=== PATIENT | female | born 1930 | race Caucasian/White ===

== ENCOUNTER 2016-10-07 15:06 | Inpatient (IN) | payer MEDICARE, OTHER ==
[2016-10-07] MEDS ORDERED: 0.9 % SODIUM CHLORIDE 0 ML IV ONE (15:56)
[2016-10-07] MEDS ORDERED: PROMETHAZINE HCL 25 MG/ML VIAL ONE (15:56)
--- NOTE | 2016-10-07 15:57 | ED Physician Documentation ---
General Adult - HISTORIAN Historian: patient, other (family) - HPI Stated Complaint: N/V and Dizziness Chief Complaint: General Adult Onset: hours Timing: still present Severity: moderate Further Comments: yes (Pt is an 86 yo female with nausea, vomiting, weakness and dizziness that began this am. No fever. Pt denies chest pain and cough. "I just don't feel well.") - ROS CONST: weakness EYES/ENT: none CVS/RESP: none GI/: vomiting, nausea. denies: diarrhea MS/SKIN/LYMPH: none NEURO/PSYCH: dizziness - PAST HX Past History: other Surgeries/Procedures: other (cardiac pacemaker) Allergies/Adverse Reactions: Allergies Allergy/AdvReac Type Severity Reaction Status Date / Time warfarin [Warfarin] Allergy Severe Rash Verified 10/07/16 15:26 atenolol Allergy Intermediate Throat Verified 10/07/16 15:26 Swelling Penicillins Allergy Intermediate Rash Verified 10/07/16 15:26 pravastatin Allergy Intermediate Itchy Skin Verified 10/07/16 15:26 levofloxacin Allergy Mild Verified 10/07/16 15:26 fluticasone furoate Allergy Verified 10/07/16 15:26 [From Breo Ellipta] vilanterol trifenatate Allergy Verified 10/07/16 15:26 [From Breo Ellipta] iodine AdvReac Tongue Verified 10/07/16 15:26 Swelling Home Medications: Ambulatory Orders Medication Instructions Recorded Timolol [Betimol] 5 ml OP DAILY 10/16/12 Dorzolamide HCl/Timolol Maleat 1 drop EACHEYE D 04/06/14 [Cosopt Eye Drops] Levocetirizine Dihydrochloride 5 mg PO D 04/06/14 [Levocetirizine Dihydrochloride] Lovastatin [Lovastatin] 40 mg PO D 04/06/14 - SOCIAL HX Smoking History: quit greater than 1 year - FAMILY HX Family History: No - VITAL SIGNS Vital Signs: Vital Signs Temp Pulse Resp BP Pulse Ox 98.1 F 118 H 20 169/84 93 10/07/16 15:10 10/07/16 15:38 10/07/16 15:10 10/07/16 15:10 10/07/16 15:38 - REVIEWED ASSESSMENTS Nursing Assessment Reviewed: Yes Vitals Reviewed: Yes Progress - Progress Progress: CXR: Cardiomegaly with mild vascular congestion bilateral infiltrates most prominent in a right upper lobe and left lower lobe. 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 B/l pneumonia, Strep pharyngitis. - EKG/XRAY/CT EKG: NSR (HR=98; LVH by voltage.) ED Results Lab/Radiology - Orders Orders: ED Orders Category Date Time Status Continuous EKG monitoring Q30M Care 10/07/16 15:38 Active Continuous Pulse Oximetry Q30M Care 10/07/16 15:[address] Saline Lock/IV NOW Care 10/07/16 15:38 Completed CHEST 1 VIEW [RAD] Stat Exams 10/07/16 15:38 Ordered CBC/PLATELET/DIFF Routine Lab 10/07/16 15:20 Ordered CMP Routine Lab 10/07/16 15:20 Ordered CREATINE KINASE Routine Lab 10/07/16 15:20 Ordered TROPONIN I (cTnI) Stat Lab 10/07/16 15:38 Ordered Oxygen Daily Oxygen 10/07/16 15:45 Ordered EKG WITH COMPARISON Stat Ther 10/07/16 15:20 Ordered EKG WITH COMPARISON Stat Ther 10/07/16 15:38 Ordered General Adult Physical Exam - PHYSICAL EXAM GENERAL APPEARANCE: moderate distress EENT: eye inspection normal, ENT inspection normal, pharynx normal NECK: normal inspection, supple RESPIRATORY: no resp distress, chest non-tender, rales (b/l) CVS: reg rate & rhythm, heart sounds normal ABDOMEN: soft, no organomegaly, normal bowel sounds BACK: normal inspection, no CVA tenderness SKIN: warm/dry, normal color EXTREMITIES: non-tender, normal range of motion NEURO: oriented X3, motor nml, sensation nml Discharge Clincal Impression: Strep pharyngitis Pneumonia Qualifiers: Pneumonia type: due to unspecified organism Laterality: bilateral Lung location : unspecified part of lung Qualified Code(s): J18.9 - Pneumonia, unspecified organism CHF (congestive heart failure) Qualifiers: Congestive heart failure type: unspecified congestive heart failure type Congestive heart failure chronicity: unspecified congestive heart failure chronicity Qualified Code(s): I50.9 - Heart failure, unspecified Home Medications: Ambulatory Orders Timolol [Betimol] 5 ml OP DAILY 10/16/12 Dorzolamide HCl/Timolol Maleat [Cosopt Eye Drops] 1 drop EACHEYE D 04/06/14 Levocetirizine Dihydrochloride [Levocetirizine Dihydrochloride] 5 mg PO D Lovastatin [Lovastatin] 40 mg PO D 04/06/14 Condition: Stable Disposition: 09 ADMITTED INPATIENT Decision to Admit: [id number] Decision Time: 17:22
[2016-10-07] MEDS ORDERED: PROMETHAZINE HCL 25 MG in 0.9 % SODIUM CHLORIDE 50 ML IV ONE (16:01)
--- NOTE | 2016-10-07 16:24 | Diagnostic Imaging Report ---
[facility] [id number] [facility].[address] [address] Report Submission Date: Oct 07, 2016 4:03:03 PM GEOTHERMAL OPERATIONS ENGINEER Patient Study Name: LUZ MARIA BAELS Date: Oct 07, 2016 3:56:19 PM GEOTHERMAL OPERATIONS ENGINEER Modality Type: CR Gender: F Description: CHEST : 28 Institution: [facility] Physician: BHAVANI JACOBS EXAMINATION: Chest, one-view. HISTORY: Shortness of breath FINDINGS: The heart is mildly enlarged. Wire sternal sutures are in place. There is atherosclerosis of the aorta. There is mild vascular congestion. Bilateral pulmonary infiltrates are present most prominent in the right upper lobe and left lower lobe. There is no pleural effusion or pneumothorax identified. Cardiac device present in the left chest wall with leads extending to the heart. IMPRESSION: Cardiomegaly with mild vascular congestion bilateral infiltrates most prominent in a right upper lobe and left lower lobe. Electronically signed on Oct 07, 2016 4:03:03 PM GEOTHERMAL OPERATIONS ENGINEER by: Ivan JOSEPH
[2016-10-07 16:37] LABS: BASOPHILS % 0.4 (0.0-1.5); EOSINOPHILS % 1.7 % (0.0-6.8); LYMPHOCYTES # 1.3 # k/uL (0.6-4.0); MEAN CORPUSCULAR HEMOGLOBIN 29.7 pg (28.0-34.0); MONOCYTES # 0.4 # k/uL (0.0-0.9); MONOCYTES % 5.5 % (0.0-11.0); NEUTROPHILS # 6.2 # k/uL (1.4-7.7)
[2016-10-07 16:49] LABS: eGFR (African) > 60; eGFR (Non-African) > 60
[2016-10-07] MEDS ORDERED: IPRATROPIUM/ALBUTEROL SULFATE 3 ML AMPUL.NEB NEB ONE ×2 (16:49)
[2016-10-07] MEDS: cefTRIAXone SODIUM 1 GM in 0.9 % SODIUM CHLORIDE 50 ML IV SCH (17:35)
[2016-10-07] MEDS ORDERED: cefTRIAXone SODIUM ADVANTAGE 1 GM VIAL.PORT IV ONE (17:35)
[2016-10-07] MEDS ORDERED: 0.9 % SODIUM CHLORIDE 100 ML IV ONE (17:35)
[2016-10-07] MEDS ORDERED: PANTOPRAZOLE SODIUM 40 MG TABLET PO ONE (17:58)
[2016-10-07] MEDS ORDERED: AZITHROMYCIN 500 MG VIAL IV ONE (18:36)
[2016-10-07] MEDS ORDERED: ACETAMINOPHEN 325 MG SUPP.RECT RC ONE (18:37)
[2016-10-07] MEDS ORDERED: 0.9 % SODIUM CHLORIDE 250 ML IV ONE (18:39)
[2016-10-07] MEDS ORDERED: ACETAMINOPHEN 325 MG TABLET ONE (18:40)
[2016-10-07] MEDS ORDERED: ASPIRIN EC 81 MG TABLET.DR ONE (18:57)
[2016-10-07] MEDS ORDERED: FUROSEMIDE 20 MG/2 ML VIAL IVP ONE (19:09)
[2016-10-07] MEDS ORDERED: SALINE FLUSH 10 ML DISP.SYRIN IVF ONE (19:13)
[2016-10-07] MEDS ORDERED: ACETAMINOPHEN 325 MG TABLET PO PRN (19:13)
--- NOTE | 2016-10-07 19:26 | History and Physical Report ---
History of Present Illnes - History of Present Illness Reason for Visit: Pneumonia, vomiting, generalized weakness, congestive heart failure History of Present Illness: This is an 86 year old female admitted through the ER for bilateral pneumonia, congestive heart failure, and generalized weakness. She notes she had 3 episodes of vomiting earlier today and was feeling dehydrated and weak. She notes she has had several upper respiratory illnesses over the last few months but denies feeling short of breath. She notes a mild cough but states that it is usually nonproductive. She notes a significant cardiac history including CABG, and ICD placement. She denies any orthopnea, dyspnea on exertion, or peripheral edema. She notes she is nervous to eat anything since vomiting earlier but states her stomach feels better after getting the anti-nausea medications. - Past Medical History Cardiac: CAD, CHF, HTN, [place], Hyperlipidemia Pulmonary: denies: Asthma, COPD - Past Surgical History Past Surgical History: CABG, Hysterectomy, Other (Aortic Valve replacement with bovine valve. right carotid enartectomy, reconstructive bladder, ) - Past Social History Smoke: Quit (many years ago) Alcohol: None Drugs: None Lives: Alone - Health Maintenance Health Maintenance: Influenza Vaccine, Pneumococcal Vaccine Influenza Vaccine: Current for this Influenza Season Pneumonia Vaccine: Yes (Pneumovax: 07/04/2016, Prevnar: 07/27/2015) Resuscitation Status: Full Code Review of Systems - Review of Systems Constitutional: Weakness, Malaise. negative: Fever, Chills Eyes: negative: vision change, conjunctivae inflammation, eyelid inflammation, redness ENT: negative: Ear Pain, Ear Discharge, Nose Pain, Nose Discharge, Mouth Pain, Mouth Swelling, Throat Pain Respiratory: Cough (mild). negative: Shortness of Breath, Hemoptysis ( ), SOB with Excertion, Wheezing Cardiovascular: negative: Chest Pain, Palpitations, Edema, Light Headedness Gastrointestinal: Nausea, Vomiting. negative: Abdominal Pain, Diarrhea, Constipation, Hematochezia Genitourinary: negative: Dysuria, Frequency, Hematuria Musculoskeletal: Leg Pain (Complaining of leg cramps). negative: Neck Pain Skin: negative: Rash, Lesions, Jaundice, Bruising Neurological: Weakness (generalized weakness). negative: Numbness, Incoordination, Change in Speech, Confusion, Seizures - Medications/Allergies Allergies/Adverse Reactions: Allergies Allergy/AdvReac Type Severity Reaction Status Date / Time warfarin [Warfarin] Allergy Severe Rash Verified 10/07/16 15:26 atenolol Allergy Intermediate Throat Verified 10/07/16 15:26 Swelling Penicillins Allergy Intermediate Rash Verified 10/07/16 15:26 pravastatin Allergy Intermediate Itchy Skin Verified 10/07/16 15:26 levofloxacin Allergy Mild Verified 10/07/16 15:26 fluticasone furoate Allergy Verified 10/07/16 15:26 [From Breo Ellipta] vilanterol trifenatate Allergy Verified 10/07/16 15:26 [From Breo Ellipta] iodine AdvReac Tongue Verified 10/07/16 15:26 Swelling Current Inpatient Medications: Current Inpatient Medications Acetaminophen (Tylenol) 650 mg PO Q6H PRN PRN Reason: Fever >101 Last Admin: 10/07/16 18:45 Dose: 650 mg Albuterol Sulfate (Ventolin) 2.5 mg NEB Q4 SERGIO Stop: 10/12/16 23:59 Amlodipine Besylate (Norvasc) 5 mg PO DAILY [facility] Aspirin (Aspirin) 81 mg PO DAILY [facility] Stop: 10/12/16 23:59 Dorzolamide/Timolol (Cosopt Eye Drops) 1 drop OP BID [facility] Fluticasone Propionate (Flonase Nasal [place]) spray NS BID [facility] Furosemide (Lasix) 20 mg IVP NOW ONE Stop: 10/07/16 19:10 Last Admin: 10/07/16 19:25 Dose: 20 mg Ceftriaxone Sodium 1 gm/ (Sodium Chloride) 50 mls @ 100 mls/hr IV QD [facility] Last Admin: 10/07/16 17:35 Dose: 100 mls/hr Azithromycin 500 mg/ Sodium (Chloride) 250 mls @ 125 mls/hr IV Q24H [facility] Stop: 10/17/16 17:59 Lisinopril (Prinivil) 40 mg PO DAILY [facility] Stop: 10/12/16 23:59 Loratadine (Claritin) 10 mg PO DAILY [facility] Stop: 10/12/16 23:59 Pantoprazole Sodium (Protonix) 40 mg PO NOW ONE Stop: 10/07/16 17:59 Last Admin: 10/07/16 18:44 Dose: 40 mg Simvastatin (Zocor) 20 mg PEG HS [facility] Exam - Exam Vital Signs: Vital Signs (72 hours) 10/07/16 10/07/16 10/07/16 17:40 18:00 18:05 Temperature 98.1 F Pulse Rate 90 Pulse Rate [ 98 H 98 H Pulse ox] Respiratory 18 20 Rate Blood Pressure 128/87 118/64 [Right Arm] O2 Sat by Pulse 99 99 99 Oximetry General: Alert, Oriented to Person, Oriented to Place, Oriented to Time, Cooperative, No acute distress, Thin HEENT: Atraumatic, PERRLA, EOMI, Mouth Mucous membr. moist/[place], Nose Mucous membr. moist/[place] ( ), Decreased Hearing Acuity. No: Photophobia Neck: Normal Range of Motion Lungs: Speaks full Sentences, Wheezes (mild scattered wheezing at lung bases). No: Respiratory Distress, Accessory Muscle Use, Retractions/Splinting, Decreased Air Movement, Chest Wall Tenderness Cardiovascular: Regular rate, Normal S1, Normal S2, No murmurs. No: Gallops, Rubs Abdomen: Normal bowel sounds, Soft, No tenderness, No masses. No: Distended, Rigid Integumentary: Normal, [place], Warm, Dry Extremities: Normal pulses. No: No clubbing, No cyanosis, No edema, No tenderness/swelling Neurological: Normal gait, Normal speech, Strength Equal Bilat, Sensation intact Psych/Mental Status: Mood NL, Appropriate Affect - Laboratory Results Laboratory Results: Laboratory Results - last 24 hr 10/07/16 10/07/16 10/07/16 16:30 16:30 16:30 WBC 8.20 RBC 4.40 Hgb 13.1 Hct 40.2 MCV 91.4 MCH 29.7 MCHC 32.5 RDW 13.2 Plt Count 223 Neut % (Auto) 75.6 Lymph % (Auto) 15.8 L [place] % (Auto) 5.5 Eos % (Auto) 1.7 Baso % (Auto) 0.4 Neut # 6.2 Lymph # 1.3 [place] # 0.4 Eos # 0.1 Baso # 0.0 Reactive Lymphs % 0.9 Reactive Lymphs # 0.1 Sodium 137 Potassium 3.9 Chloride 99 Carbon Dioxide 27 BUN 18 Creatinine 1.1 Estimated Creat Clear 39 Est GFR ( Amer) > 60 Est GFR (Non-Af Amer) > 60 Glucose 128 H Calcium 10.3 Total Bilirubin 0.5 AST 21 ALT 9 Alkaline Phosphatase 109 Creatine Kinase 25 Troponin I < 0.03 L NT-Pro-B Natriuret Pep Total Protein 8.4 Albumin 4.5 01/22/17 16:30 WBC RBC Hgb Hct MCV MCH MCHC RDW Plt Count Neut % (Auto) Lymph % (Auto) [place] % (Auto) Eos % (Auto) Baso % (Auto) Neut # Lymph # [place] # Eos # Baso # Reactive Lymphs % Reactive Lymphs # Sodium Potassium Chloride Carbon Dioxide BUN Creatinine Estimated Creat Clear Est GFR ( Amer) Est GFR (Non-Af Amer) Glucose Calcium Total Bilirubin AST ALT Alkaline Phosphatase Creatine Kinase Troponin I NT-Pro-B Natriuret Pep 1025.0 H Total Protein Albumin Assessment/Plan - Assessment/Plan (1) Pneumonia Status: Acute Current Visit: Yes Qualifiers: Pneumonia type: due to unspecified organism Laterality: bilateral Lung location: lower lobe of lung Qualified Code(s): J18.9 - Pneumonia, unspecified organism Assessment: Chest x-ray shows bilateral infiltrates. Patient has mild scattered wheezing at bilateral lung bases. She is requiring O2 at 2L to keep O@ sat above 90. Patient has mild cough. Plan: Continue breathing treatments. Continue O2, titrating as needed. Rocephin and Azithromycin started. (2) Vomiting Status: Acute Current Visit: Yes Qualifiers: Vomiting type: unspecified Vomiting Intractability: non-intractable Nausea presence: with nausea Qualified Code(s): R11.2 - Nausea with vomiting, unspecified Assessment: Patient appears to be responding well after getting promethazine in the ED. She states she no longer feels nauseous. Plan: Continue IV fluids. Advance diet slowly beginning with breakfast on 10/08/2016. (3) CHF (congestive heart failure) Status: Acute Current Visit: Yes Qualifiers: Congestive heart failure type: unspecified congestive heart failure type Congestive heart failure chronicity: acute on chronic Qualified Code(s): I50.9 - Heart failure, unspecified Assessment: BNP is elevated at 1025.0 pg/ml. Patient is requiring O2 at 2L to keep O2 sat above 90%. She denies any shortness of breath. There is no evidence of peripheral edema on exam. Plan: Continue O2 titrating as needed. Start Lasix 20mg PO QD. (4) HTN (hypertension) Status: Chronic Current Visit: Yes Qualifiers: Hypertension type: essential hypertension Qualified Code(s): I10 - Essential (primary) hypertension Assessment: Blood pressure is well controlled with last BP reading of 118/64. Plan: Continue home medications. Continue to monitor BP. VTE Assessment - RISK FACTOR SCORE VTE RISK FACTOR SCORES: AGE OVER 60 YEARS, ACUTE INFECTION OTHER THEN SEPSIS, CONGESTIVE HEART FAILURE OR MYOCARDIAL INFARCTION - RISK VTE HIGH RISK: SCORE OF 3-4 (RISK PROXIMAL DVT 4-8%) PROPHYLAXIS NEEDED
[2016-10-07 19:37] VITALS: BMI 21.6
[2016-10-07] MEDS: AZITHROMYCIN 500 MG in 0.9 % SODIUM CHLORIDE 250 ML IV SCH (20:00)
[2016-10-07] MEDS ORDERED: IPRATROPIUM/ALBUTEROL SULFATE 3 ML AMPUL.NEB NEB SCH (21:00)
[2016-10-07] MEDS: SIMVASTATIN 20 MG TABLET PEG SCH (21:20)
[2016-10-07] MEDS: ASPIRIN 81 MG CHEW TAB PO SCH (21:22)
[2016-10-07] MEDS: DORZOLAMINE HCL/TIMOLOL MALEAT OPTH DROP OP SCH (21:24)
[2016-10-07] MEDS: ALBUTEROL SULFATE 2.5 MG/3 ML AMPUL.NEB NEB SCH (22:35)
[2016-10-08] MEDS ORDERED: SALINE FLUSH 10 ML DISP.SYRIN IVF ONE ×2 (02:24→17:46)
[2016-10-08] MEDS: ALBUTEROL SULFATE 2.5 MG/3 ML AMPUL.NEB NEB SCH ×5 (02:30→16:27)
[2016-10-08 07:34] LABS: BASOPHILS % 0.4 (0.0-1.5); EOSINOPHILS % 2.6 % (0.0-6.8); LYMPHOCYTES # 1.2 # k/uL (0.6-4.0); MEAN CORPUSCULAR HEMOGLOBIN 30.4 pg (28.0-34.0); MONOCYTES # 0.4 # k/uL (0.0-0.9); MONOCYTES % 6.2 % (0.0-11.0); NEUTROPHILS # 4.8 # k/uL (1.4-7.7)
[2016-10-08 07:55] LABS: eGFR (African) > 60; eGFR (Non-African) > 60
[2016-10-08] MEDS: FLUTICASONE PROPIONATE 120 SPRAY/16 GR BOTTLE NS SCH ×3 (09:32→20:28)
[2016-10-08] MEDS: ASPIRIN 81 MG CHEW TAB PO SCH (09:32)
[2016-10-08] MEDS: LORATADINE 10 MG TABLET PO SCH (09:33)
[2016-10-08] MEDS: LISINOPRIL 20 MG TABLET PO SCH (09:34)
[2016-10-08] MEDS: amLODIPine BESYLATE 5 MG TABLET PO SCH (09:34)
[2016-10-08] MEDS: DORZOLAMINE HCL/TIMOLOL MALEAT OPTH DROP OP SCH ×2 (09:34→20:29)
[2016-10-08] MEDS: AZITHROMYCIN 500 MG in 0.9 % SODIUM CHLORIDE 250 ML IV SCH (18:17)
[2016-10-08] MEDS: cefTRIAXone SODIUM 1 GM in 0.9 % SODIUM CHLORIDE 50 ML IV SCH (20:24)
[2016-10-08] MEDS: SIMVASTATIN 20 MG TABLET PEG SCH (20:29)
[2016-10-09] MEDS: ALBUTEROL SULFATE 2.5 MG/3 ML AMPUL.NEB NEB SCH ×7 (00:28→23:27)
--- NOTE | 2016-10-09 08:12 | Inpatient Progress Note ---
Subjective - Required Recertification Statement I anticipate X number of days because-include discharge plan: 2 - Review of Systems Subjective: patient continued to be weak with some respiratory distress. Patient states she does have a cough that is productive of green to yellow phlegm. Patient does have some mild expiratory wheezing noted. Patient denies any chest pain chest pressure TIA or CVA symptoms. General: Chills Pulmonary: Dyspnea, Cough Cardiovascular: Denies: Chest Pain, Palpitations Gastrointestinal: Nausea (mild). Denies: Vomiting, Diarrhea, Constipation, Melena, Hematochezia Objective - Exam Vitals and I&O: Vital Signs Temp 98.6 F 10/09/16 06:00 Pulse 74 10/09/16 06:00 Resp 18 10/09/16 06:00 BP 130/72 10/09/16 06:00 Pulse Ox 95 10/09/16 06:00 Intake & Output 10/08/16 10/08/16 10/09/16 11:59 23:59 11:59 Intake Total 240 360 Output Total 600 Balance -360 360 Weight 58.967 kg Intake: Oral 240 360 Output: Urine 600 Other: Voiding Method Toilet Toilet General: Alert, Oriented to Person, Oriented to Place, Cooperative. No: Oriented to Time Neck: Supple, No JVD, No thyromegaly Lungs: Normal air movement, Speaks full Sentences, Respiratory Distress (mild), Wheezes (mild), Rales (rales right base). No: Rhonchi Cardiovascular: Regular rate, Normal S1, Normal S2 Abdomen: Normal bowel sounds, Soft, No tenderness, No hepatospenomegaly Psych/Mental Status: Mental status NL, Mood NL, Appropriate Affect, Intact Judgment - Results Results: Laboratory Results WBC 6.70 K/ul (4.00-12.00) 10/08/16 06:55 RBC 4.28 M/ul (3.90-5.20) 10/08/16 06:55 Hgb 13.0 g/dL (12.0-16.0) 10/08/16 06:55 Hct 40.1 % (34.5-46.5) 10/08/16 06:55 MCV 93.9 fl (80.0-100.0) 10/08/16 06:55 MCH 30.4 pg (28.0-34.0) 10/08/16 06:55 MCHC 32.3 g/dL (30.0-36.0) 10/08/16 06:55 RDW 13.1 % (11.3-14.3) 10/08/16 06:55 Plt Count 186 K/mm3 (130-400) 10/08/16 06:55 Neut % (Auto) 71.5 % (39.0-79.0) 10/08/16 06:55 Lymph % (Auto) 18.0 % (16.0-50.0) 10/08/16 06:55 [place] % (Auto) 6.2 % (0.0-11.0) 10/08/16 06:55 Eos % (Auto) 2.6 % (0.0-6.8) 10/08/16 06:55 Baso % (Auto) 0.4 (0.0-1.5) 10/08/16 06:55 Neut # 4.8 # k/uL (1.4-7.7) 10/08/16 06:55 Lymph # 1.2 # k/uL (0.6-4.0) 10/08/16 06:55 Jay # 0.4 # k/uL (0.0-0.9) 10/08/16 06:55 Eos # 0.2 # k/uL (0.0-0.6) 10/08/16 06:55 Baso # 0.0 # k/uL (0.0-0.5) 10/08/16 06:55 Reactive Lymphs % 1.4 % (0.0-5.0) 10/08/16 06:55 Reactive Lymphs # 0.1 # k/uL (0.0-0.8) 10/08/16 06:55 Sodium 136 mmol/L (136-145) 10/08/16 06:55 Potassium 4.3 mmol/L (3.5-5.0) 10/08/16 06:55 Chloride 109 mmol/L (98-110) 10/08/16 06:55 Carbon Dioxide 30 mmol/L (20-32) 10/08/16 06:55 BUN 17 mg/dL (10-26) 10/08/16 06:55 Creatinine 1.2 mg/dL (0.4-1.5) 10/08/16 06:55 Estimated Creat Clear 36 10/08/16 06:55 Est GFR ( Amer) > 60 (60-) 10/08/16 06:55 Est GFR (Non-Af Amer) > 60 (60-) 10/08/16 06:55 Glucose 87 mg/dL (70-99) 10/08/16 06:55 Calcium 9.5 mg/dL (8.5-10.5) 10/08/16 06:55 Total Bilirubin 0.5 mg/dL (0.2-1.2) 10/08/16 06:55 AST 21 U/L (0-41) 10/08/16 06:55 ALT 10 U/L (0-45) 10/08/16 06:55 Alkaline Phosphatase 101 U/L (46-116) 10/08/16 06:55 Creatine Kinase 39 U/L (0-225) 10/08/16 06:55 CK-MB (CK-2) Cancelled 10/08/16 03:06 Troponin I < 0.03 ng/mL (0.03-0.06) L 10/08/16 03:06 NT-Pro-B Natriuret Pep 1296.3 pg/mL (15.0-450.0) H 10/07/16 21:55 Total Protein 7.8 g/dL (6.0-8.5) 10/08/16 06:55 Albumin 4.1 g/dL (3.0-5.5) 10/08/16 06:55 Influenza A (Rapid) Negative (NEGATIVE) 10/07/16 17:15 Influenza B (Rapid) Negative (NEGATIVE) 10/07/16 17:15 Group A Strep Screen Positive (NEGATIVE) H 10/07/16 17:15 Assessment/Plan - Assessment/Plan (1) Pneumonia Status: Acute Qualifiers: Pneumonia type: due to unspecified organism Laterality: bilateral Lung location: lower lobe of lung Qualified Code(s): J18.9 - Pneumonia, unspecified organism Assessment: PATIENT BREATHING APPEARED TO BE IMPROVED. wE'LL CONTINUE WITH ANTIBIOTIC THERAPY. (2) CHF (congestive heart failure) Status: Acute Qualifiers: Congestive heart failure type: unspecified congestive heart failure type Congestive heart failure chronicity: acute on chronic Qualified Code(s): I50.9 - Heart failure, unspecified Assessment: stable elevated BNP (3) HTN (hypertension) Status: Chronic Qualifiers: Hypertension type: essential hypertension Qualified Code(s): I10 - Essential (primary) hypertension Assessment: stable
[2016-10-09] MEDS: amLODIPine BESYLATE 5 MG TABLET PO SCH (09:15)
[2016-10-09] MEDS: LORATADINE 10 MG TABLET PO SCH (09:15)
[2016-10-09] MEDS: DORZOLAMINE HCL/TIMOLOL MALEAT OPTH DROP OP SCH (09:15)
[2016-10-09] MEDS: ASPIRIN 81 MG CHEW TAB PO SCH (09:15)
[2016-10-09] MEDS: LISINOPRIL 20 MG TABLET PO SCH (09:15)
[2016-10-09 10:28] LABS: eGFR (African) > 60; eGFR (Non-African) > 60
[2016-10-09] MEDS: FLUTICASONE PROPIONATE 120 SPRAY/16 GR BOTTLE NS SCH ×2 (10:35→20:41)
[2016-10-09] MEDS: AZITHROMYCIN 500 MG in 0.9 % SODIUM CHLORIDE 250 ML IV SCH (18:25)
[2016-10-09] MEDS ORDERED: SALINE FLUSH 10 ML DISP.SYRIN IVF ONE (20:28)
[2016-10-09] MEDS: cefTRIAXone SODIUM 1 GM in 0.9 % SODIUM CHLORIDE 50 ML IV SCH (20:36)
[2016-10-09] MEDS: SIMVASTATIN 20 MG TABLET PEG SCH (20:42)
[2016-10-10] MEDS: ALBUTEROL SULFATE 2.5 MG/3 ML AMPUL.NEB NEB SCH ×3 (01:05→09:38)
[2016-10-10 06:37] VITALS: BP 129/64
[2016-10-10] MEDS ORDERED: PATIENT OWN MED 1 EACH EACH OP SCH ×3 (09:00)
[2016-10-10] MEDS: ASPIRIN 81 MG CHEW TAB PO SCH (09:32)
[2016-10-10] MEDS: amLODIPine BESYLATE 5 MG TABLET PO SCH (09:32)
[2016-10-10] MEDS: FLUTICASONE PROPIONATE 120 SPRAY/16 GR BOTTLE NS SCH (09:33)
[2016-10-10] MEDS: LISINOPRIL 20 MG TABLET PO SCH (09:33)
[2016-10-10] MEDS: LORATADINE 10 MG TABLET PO SCH (09:33)
--- NOTE | 2016-10-28 19:48 | Discharge Summary ---
Discharge Summary - Discharge Sumary History of Present Illness: This is an 86 year old female admitted through the ER for bilateral pneumonia, congestive heart failure, and generalized weakness. She notes she had 3 episodes of vomiting earlier today and was feeling dehydrated and weak. She notes she has had several upper respiratory illnesses over the last few months but denies feeling short of breath. She notes a mild cough but states that it is usually nonproductive. She notes a significant cardiac history including CABG, and ICD placement. She denies any orthopnea, dyspnea on exertion, or peripheral edema. She notes she is nervous to eat anything since vomiting earlier but states her stomach feels better after getting the anti-nausea medications. Home Medications: Ambulatory Orders Medication Instructions Recorded Lovastatin 40 mg PO D 04/06/14 Acetaminophen [Tylenol] 650 mg PO Q6H PRN #0 tablet 10/10/16 Albuterol Sulfate [Ventolin HFN] 2.5 mg NEB Q4 PRN ampul.neb 10/10/16 Levocetirizine Dihydrochloride 5 mg PO 10/17/16 [Xyzal] Consultations this Visit: None Procedures this Visit: None Allergies/Adverse Reactions: Allergies Allergy/AdvReac Type Severity Reaction Status Date / Time warfarin [Warfarin] Allergy Severe Rash Verified 10/07/16 15:26 atenolol Allergy Intermediate Throat Verified 10/07/16 15:26 Swelling Penicillins Allergy Intermediate Rash Verified 10/07/16 15:26 pravastatin Allergy Intermediate Itchy Skin Verified 10/07/16 15:26 levofloxacin Allergy Mild Verified 10/07/16 15:26 pravastatin sodium Allergy Unknown Unverified 10/22/16 10:04 [From Pravachol] fluticasone furoate Allergy Verified 10/07/16 15:26 [From Breo Ellipta] vilanterol trifenatate Allergy Verified 10/07/16 15:26 [From Breo Ellipta] iodine AdvReac Tongue Verified 10/07/16 15:26 Swelling anabolic steriods Allergy Unknown Uncoded 10/22/16 10:04 Discharge Summary: patient was found to have bilateral lower lobe pneumonia. Patient was started on IV Levaquin and IV azithromycin with high flow nebulization treatments. Over the last 48 hours. Patient's symptoms did improved. Patient was able to ambulate with some continued shortness of breath and dyspnea was improved. Patient continued to have a cough productive of green to yellow phlegm. Patient denies any chest pain. Patient was found to have some mild congestive heart failure and was given IV Lasix. At the time of dismissal patient continued to have generalized weakness and was felt that she would benefit from further skilled and occupational therapy. Patient was subsequently discharged in stable condition for skilled services. - Final Diagnosis (1) Pneumonia Problems: unspecified organism. Blood cultures negative, treat with IV levaquin and azithromycin. (2) CHF (congestive heart failure) Problems: Given IV lasix
--- NOTE | 2016-10-28 19:51 | Inpatient Progress Note ---
Subjective - Required Recertification Statement I anticipate X number of days because-include discharge plan: 1 day - Review of Systems Events since last encounter: Patient seems to be doing better at this time. Is ambulating some. Patient still has a cough but is improving, still wheezing and getting SOB with exertion. Subjective: patient continued to be weak with some respiratory distress. Patient states she does have a cough that is productive of green to yellow phlegm. Patient does have some mild expiratory wheezing noted. Patient denies any chest pain chest pressure TIA or CVA symptoms. General: Other (no fever). Denies: Chills, Fatigue Pulmonary: Dyspnea, Cough. Denies: Pleuritic Chest Pain Cardiovascular: Denies: Chest Pain, Palpitations, Orthopnea, Paroxysmal Noc. Dyspnea, Edema Gastrointestinal: Nausea. Denies: Vomiting, Abdominal Pain, Diarrhea Objective - Exam Vitals and I&O: Vital Signs Temp 98.5 F 10/10/16 08:34 Pulse 78 10/10/16 08:34 Resp 16 10/10/16 08:34 BP 129/64 10/10/16 08:17 Pulse Ox 97 10/10/16 08:34 General: Alert, Oriented to Person, Oriented to Place, Oriented to Time, Cooperative HEENT: Atraumatic, PERRLA, EOMI, Mouth Mucous membr. moist/[place], Nose Mucous membr. moist/[place] Neck: Supple, No JVD, No thyromegaly Lungs: Speaks full Sentences, Respiratory Distress (mild), Rales (bilateral). No: Wheezes Cardiovascular: Regular rate, Normal S1, Normal S2, No murmurs Abdomen: Normal bowel sounds, Soft, No tenderness Psych/Mental Status: Mental status NL, Mood NL, Intact Judgment - Results Results: Laboratory Results WBC 6.70 K/ul (4.00-12.00) 10/08/16 06:55 RBC 4.28 M/ul (3.90-5.20) 10/08/16 06:55 Hgb 13.0 g/dL (12.0-16.0) 10/08/16 06:55 Hct 40.1 % (34.5-46.5) 10/08/16 06:55 MCV 93.9 fl (80.0-100.0) 10/08/16 06:55 MCH 30.4 pg (28.0-34.0) 10/08/16 06:55 MCHC 32.3 g/dL (30.0-36.0) 10/08/16 06:55 RDW 13.1 % (11.3-14.3) 10/08/16 06:55 Plt Count 186 K/mm3 (130-400) 10/08/16 06:55 Neut % (Auto) 71.5 % (39.0-79.0) 10/08/16 06:55 Lymph % (Auto) 18.0 % (16.0-50.0) 10/08/16 06:55 [place] % (Auto) 6.2 % (0.0-11.0) 10/08/16 06:55 Eos % (Auto) 2.6 % (0.0-6.8) 10/08/16 06:55 Baso % (Auto) 0.4 (0.0-1.5) 10/08/16 06:55 Neut # 4.8 # k/uL (1.4-7.7) 10/08/16 06:55 Lymph # 1.2 # k/uL (0.6-4.0) 10/08/16 06:55 [place] # 0.4 # k/uL (0.0-0.9) 10/08/16 06:55 Eos # 0.2 # k/uL (0.0-0.6) 10/08/16 06:55 Baso # 0.0 # k/uL (0.0-0.5) 10/08/16 06:55 Reactive Lymphs % 1.4 % (0.0-5.0) 10/08/16 06:55 Reactive Lymphs # 0.1 # k/uL (0.0-0.8) 10/08/16 06:55 Sodium 136 mmol/L (136-145) 10/09/16 09:50 Potassium 4.2 mmol/L (3.5-5.0) 10/09/16 09:50 Chloride 103 mmol/L (98-110) 10/09/16 09:50 Carbon Dioxide 28 mmol/L (20-32) 10/09/16 09:50 BUN 16 mg/dL (10-26) 10/09/16 09:50 Creatinine 1.1 mg/dL (0.4-1.5) 10/09/16 09:50 Estimated Creat Clear 39 10/09/16 09:50 Est GFR ( Amer) > 60 (60-) 10/09/16 09:50 Est GFR (Non-Af Amer) > 60 (60-) 10/09/16 09:50 Glucose 93 mg/dL (70-99) 10/09/16 09:50 Calcium 9.1 mg/dL (8.5-10.5) 10/09/16 09:50 Total Bilirubin 0.5 mg/dL (0.2-1.2) 10/08/16 06:55 AST 21 U/L (0-41) 10/08/16 06:55 ALT 10 U/L (0-45) 10/08/16 06:55 Alkaline Phosphatase 101 U/L (46-116) 10/08/16 06:55 Creatine Kinase 39 U/L (0-225) 10/08/16 06:55 CK-MB (CK-2) Cancelled 10/08/16 03:06 Troponin I < 0.03 ng/mL (0.03-0.06) L 10/08/16 03:06 NT-Pro-B Natriuret Pep 1296.3 pg/mL (15.0-450.0) H 10/07/16 21:55 Total Protein 7.8 g/dL (6.0-8.5) 10/08/16 06:55 Albumin 4.1 g/dL (3.0-5.5) 10/08/16 06:55 Influenza A (Rapid) Negative (NEGATIVE) 10/07/16 17:15 Influenza B (Rapid) Negative (NEGATIVE) 10/07/16 17:15 Group A Strep Screen Positive (NEGATIVE) H 10/07/16 17:15 Assessment/Plan - Assessment/Plan (1) Pneumonia Status: Acute Qualifiers: Pneumonia type: due to unspecified organism Laterality: bilateral Lung location: lower lobe of lung Qualified Code(s): J18.9 - Pneumonia, unspecified organism Comment: appear to be improving (2) CHF (congestive heart failure) Status: Acute Qualifiers: Congestive heart failure type: unspecified congestive heart failure type Congestive heart failure chronicity: acute on chronic Qualified Code(s): I50.9 - Heart failure, unspecified Assessment: stable getting IV lasix (3) HTN (hypertension) Status: Chronic Qualifiers: Hypertension type: essential hypertension Qualified Code(s): I10 - Essential (primary) hypertension Assessment: stable on home meds
== END 2016-10-10 08:41 | disposition home or self-care (01) | DRG 291 ==
LOC: ED 15:06 → SOUTH 17:37
PROVIDERS: ADMIT Family Medicine; ATTEND Family Medicine
DX: I50.9 Heart failure, unspecified (principal); J18.9 Pneumonia, unspecified organism; I10 Essential (primary) hypertension
CPT/HCPCS: 36415; 71010; 80048; 80053; 82550; 83880; 84484; 85025; 87040; 87400; 87880; 93005; 94640; 94760; 97116; 97161; 99283; 99284; J0456; J0696; J1940; J2550; J7050; 99222; 99232; 99238; S1016

== ENCOUNTER 2016-10-10 08:41 | Inpatient (IN) | payer MEDICARE, OTHER ==
[2016-10-10] MEDS ORDERED: ACETAMINOPHEN 325 MG TABLET PO PRN (09:55)
[2016-10-10] MEDS ORDERED: ALBUTEROL SULFATE 2.5 MG/3 ML AMPUL.NEB NEB PRN (09:55)
--- NOTE | 2016-10-10 09:55 | History and Physical Report ---
History of Present Illnes - History of Present Illness Reason for Visit: gait disturbance History of Present Illness: 86-year-old white female who was recently admitted to the hospital for bilateral lower lobe pneumonia and mild congestive heart pain. Patient was placed on IV antibiotic therapy. Patient's respiratory status did improve. However patient remained weak and was felt to be a high fall risk. It was felt that patient would benefit from short stay skilled therapy. Goal was for the patient to return back home. - Past Medical History Cardiac: CAD, CHF, HTN, [place], Hyperlipidemia - Past Surgical History Past Surgical History: CABG, Hysterectomy, Other (Aortic Valve replacement with bovine valve. right carotid enartectomy, reconstructive bladder, ) - Past Social History Smoke: Quit (many years ago) Alcohol: None Drugs: None Lives: Alone - Health Maintenance Health Maintenance: Influenza Vaccine, Pneumococcal Vaccine Pneumonia Vaccine: Yes Resuscitation Status: full code Review of Systems - Review of Systems Constitutional: Weakness. negative: Fever, Chills, Sweats Eyes: negative: pain, conjunctivae inflammation ENT: Other (decrease heather acuity). negative: Ear Pain, Nose Pain, Nose Discharge, Nose Congestion, Mouth Pain, Mouth Swelling, Throat Pain, Throat Swelling Respiratory: Cough, Dry, Shortness of Breath, SOB with Excertion, Wheezing (mild ). negative: Hemoptysis, Pleuritic Pain, Sputum Cardiovascular: negative: Chest Pain, Palpitations, Orthopnea, Paroxysmal Noc. Dyspnea, Edema Gastrointestinal: Nausea. negative: Vomiting, Diarrhea, Constipation, Melena, Hematochezia Genitourinary: negative: Dysuria Musculoskeletal: negative: Neck Pain, Shoulder Pain Skin: negative: Rash, Lesions Neurological: negative: Weakness - Medications/Allergies Allergies/Adverse Reactions: Allergies Allergy/AdvReac Type Severity Reaction Status Date / Time warfarin [Warfarin] Allergy Severe Rash Verified 10/07/16 15:26 atenolol Allergy Intermediate Throat Verified 10/07/16 15:26 Swelling Penicillins Allergy Intermediate Rash Verified 10/07/16 15:26 pravastatin Allergy Intermediate Itchy Skin Verified 10/07/16 15:26 levofloxacin Allergy Mild Verified 10/07/16 15:26 pravastatin sodium Allergy Unknown Unverified 10/22/16 10:04 [From Pravachol] fluticasone furoate Allergy Verified 10/07/16 15:26 [From Breo Ellipta] vilanterol trifenatate Allergy Verified 10/07/16 15:26 [From Breo Ellipta] iodine AdvReac Tongue Verified 10/07/16 15:26 Swelling anabolic steriods Allergy Unknown Uncoded 10/22/16 10:04 Home Medications: Home Medications Levocetirizine Dihydrochloride [Xyzal] 5 mg PO 10/17/16 Exam - Exam Vital Signs: Vital Signs (72 hours) 10/09/16 10/10/16 13:57 08:17 Blood Pressure 129/64 Blood Pressure 129/64 [Left Arm] Blood Pressure 130/80 [Right Arm] General: Alert, Oriented to Person, Oriented to Place, Oriented to Time, Cooperative, No acute distress HEENT: Atraumatic, PERRLA, EOMI, Mouth Mucous membr. moist/[place], Nose Mucous membr. moist/[place] Neck: Normal Range of Motion Lungs: Normal air movement, Speaks full Sentences, Rales (right base). No: Wheezes, Rhonchi Cardiovascular: Regular rate, Normal S1, Normal S2, No murmurs Abdomen: Normal bowel sounds, Soft, No tenderness, No hepatospenomegaly, No masses. No: Distended Integumentary: Normal, [place], Warm, Dry Extremities: No clubbing, No cyanosis, No edema, Normal pulses, No tenderness/ swelling Neurological: Normal gait, Normal speech, Strength Equal Bilat, Normal tone, Sensation intact, Cranial nerves 3-12 NL, Reflexes 2+ Psych/Mental Status: Mental status NL, Mood NL, Appropriate Affect, Intact Judgment Assessment/Plan - Assessment/Plan (1) Gait disturbance Status: Acute Assessment: will start PT and OT with goal to get patient back home (2) CHF (congestive heart failure) Status: Acute Qualifiers: Congestive heart failure type: unspecified congestive heart failure type Congestive heart failure chronicity: acute on chronic Qualified Code(s): I50.9 - Heart failure, unspecified Assessment: will conitnue with po Lasix (3) Pneumonia Status: Acute Qualifiers: Pneumonia type: due to unspecified organism Laterality: bilateral Lung location: lower lobe of lung Qualified Code(s): J18.9 - Pneumonia, unspecified organism Comment: appear to be improving Assessment: finish antibiotic therapy (4) HTN (hypertension) Status: Chronic Qualifiers: Hypertension type: essential hypertension Qualified Code(s): I10 - Essential (primary) hypertension Assessment: continue home meds VTE Assessment - RISK FACTOR SCORE VTE RISK FACTOR SCORES: AGE OVER 60 YEARS, ACUTE RESPIRATORY FAILURE/SEVERE COPD - RISK VTE MODERATE RISK: SCORE OF 2 (RISK PROXIMAL DVT 2-4%) PROPHYAXIS NEEDED
[2016-10-10] MEDS: ENOXAPARIN SODIUM 30 MG/0.3 ML DISP.SYRIN SQ SCH (12:32)
[2016-10-10 12:35] VITALS: BMI 21.6
[2016-10-10] MEDS: FLUTICASONE PROPIONATE 120 SPRAY/16 GR BOTTLE NS SCH (20:33)
[2016-10-10] MEDS: CEFUROXIME AXETIL 250 MG TABLET PO SCH (20:34)
[2016-10-10] MEDS: SIMVASTATIN 20 MG TABLET PO SCH (20:34)
[2016-10-11] MEDS: FLUTICASONE PROPIONATE 120 SPRAY/16 GR BOTTLE NS SCH ×2 (09:17→20:37)
[2016-10-11] MEDS: CEFUROXIME AXETIL 250 MG TABLET PO SCH ×2 (09:17→20:41)
[2016-10-11] MEDS: LISINOPRIL 20 MG TABLET PO SCH (09:18)
[2016-10-11] MEDS: amLODIPine BESYLATE 5 MG TABLET PO SCH (09:18)
[2016-10-11] MEDS: AZITHROMYCIN 250 MG TABLET PO SCH (09:18)
[2016-10-11] MEDS: ENOXAPARIN SODIUM 30 MG/0.3 ML DISP.SYRIN SQ SCH (09:18)
[2016-10-11] MEDS ORDERED: ONDANSETRON HCL 4 MG TAB.RAPDIS PO PRN (13:54)
[2016-10-11] MEDS: SIMVASTATIN 20 MG TABLET PO SCH (20:41)
[2016-10-12] MEDS: FLUTICASONE PROPIONATE 120 SPRAY/16 GR BOTTLE NS SCH ×2 (08:57→20:32)
[2016-10-12] MEDS: CEFUROXIME AXETIL 250 MG TABLET PO SCH ×2 (08:57→20:32)
[2016-10-12] MEDS: LISINOPRIL 20 MG TABLET PO SCH (08:58)
[2016-10-12] MEDS: amLODIPine BESYLATE 5 MG TABLET PO SCH (08:58)
[2016-10-12] MEDS: AZITHROMYCIN 250 MG TABLET PO SCH (08:58)
[2016-10-12] MEDS: ENOXAPARIN SODIUM 30 MG/0.3 ML DISP.SYRIN SQ SCH (09:00)
[2016-10-12] MEDS: SIMVASTATIN 20 MG TABLET PO SCH (20:32)
[2016-10-13] MEDS: AZITHROMYCIN 250 MG TABLET PO SCH (11:06)
[2016-10-13] MEDS: amLODIPine BESYLATE 5 MG TABLET PO SCH (11:06)
[2016-10-13] MEDS: FLUTICASONE PROPIONATE 120 SPRAY/16 GR BOTTLE NS SCH ×2 (11:06→21:06)
[2016-10-13] MEDS: CEFUROXIME AXETIL 250 MG TABLET PO SCH ×2 (11:06→21:06)
[2016-10-13] MEDS: LISINOPRIL 20 MG TABLET PO SCH (11:07)
[2016-10-13] MEDS: ENOXAPARIN SODIUM 30 MG/0.3 ML DISP.SYRIN SQ SCH (11:07)
[2016-10-13] MEDS: SIMVASTATIN 20 MG TABLET PO SCH (21:06)
--- NOTE | 2016-10-13 21:47 | Inpatient Progress Note ---
Subjective - Required Recertification Statement I anticipate X number of days because-include discharge plan: 7 days - Review of Systems Events since last encounter: Patient has some nausea and vomiting yesterday. doing better today. Ate a good breakfast with no problems. No constipation at this time. Seems to be getting better with ambulation. Gastrointestinal: Denies: Nausea, Vomiting, Abdominal Pain, Diarrhea, Constipation, Melena, Hematochezia Objective - Exam Vitals and I&O: Vital Signs Temp 97.7 F 10/13/16 09:00 Pulse 99 H 10/13/16 09:00 Resp 20 10/13/16 09:00 BP 142/37 10/13/16 09:00 Pulse Ox 96 10/13/16 09:00 Intake & Output 10/12/16 10/13/16 10/13/16 23:59 11:59 23:59 Intake Total 100 240 Balance 100 240 Intake: Oral 100 240 Other: Voiding Method Toilet Toilet # Bowel Movements 0 General: Alert, Oriented to Person, Oriented to Place, Oriented to Time, Cooperative, No acute distress Lungs: Clear to auscultation, Normal air movement, Speaks full Sentences. No: Wheezes, Rales, Rhonchi Cardiovascular: Regular rate, Normal S1, Normal S2, No murmurs Abdomen: Normal bowel sounds, No tenderness, No masses. No: Distended Assessment/Plan - Assessment/Plan (1) Gait disturbance Status: Acute Current Visit: Yes Assessment: improving (2) Pneumonia Status: Acute Current Visit: No Qualifiers: Pneumonia type: due to unspecified organism Laterality: bilateral Lung location: lower lobe of lung Qualified Code(s): J18.9 - Pneumonia, unspecified organism Assessment: finishing treatment (3) Vomiting Status: Acute Current Visit: No Qualifiers: Vomiting type: unspecified Vomiting Intractability: non-intractable Nausea presence: with nausea Qualified Code(s): R11.2 - Nausea with vomiting, unspecified Assessment: appears to have resolved at this time
[2016-10-14] MEDS: CEFUROXIME AXETIL 250 MG TABLET PO SCH ×2 (09:18→21:34)
[2016-10-14] MEDS: LISINOPRIL 20 MG TABLET PO SCH (09:18)
[2016-10-14] MEDS: FLUTICASONE PROPIONATE 120 SPRAY/16 GR BOTTLE NS SCH ×2 (09:18→21:34)
[2016-10-14] MEDS: amLODIPine BESYLATE 5 MG TABLET PO SCH (09:18)
[2016-10-14] MEDS: AZITHROMYCIN 250 MG TABLET PO SCH (09:18)
[2016-10-14] MEDS: ENOXAPARIN SODIUM 30 MG/0.3 ML DISP.SYRIN SQ SCH (09:18)
[2016-10-14] MEDS: SIMVASTATIN 20 MG TABLET PO SCH (21:34)
[2016-10-15] MEDS: amLODIPine BESYLATE 5 MG TABLET PO SCH (10:39)
[2016-10-15] MEDS: LISINOPRIL 20 MG TABLET PO SCH (10:39)
[2016-10-15] MEDS: FLUTICASONE PROPIONATE 120 SPRAY/16 GR BOTTLE NS SCH ×2 (10:40→21:08)
[2016-10-15] MEDS: CEFUROXIME AXETIL 250 MG TABLET PO SCH ×2 (10:40→21:08)
[2016-10-15] MEDS: SIMVASTATIN 20 MG TABLET PO SCH (21:08)
[2016-10-16] MEDS: FLUTICASONE PROPIONATE 120 SPRAY/16 GR BOTTLE NS SCH ×2 (10:15→20:08)
[2016-10-16] MEDS: CEFUROXIME AXETIL 250 MG TABLET PO SCH (10:15)
[2016-10-16] MEDS: amLODIPine BESYLATE 5 MG TABLET PO SCH (10:16)
[2016-10-16] MEDS: LISINOPRIL 20 MG TABLET PO SCH (10:16)
[2016-10-16] MEDS: SIMVASTATIN 20 MG TABLET PO SCH (20:07)
--- NOTE | 2016-10-17 08:23 | Discharge Summary ---
Discharge Summary - Discharge Sumary History of Present Illness: 86-year-old white female who was recently admitted to the hospital for bilateral lower lobe pneumonia and mild congestive heart pain. Patient was placed on IV antibiotic therapy. Patient's respiratory status did improve. However patient remained weak and was felt to be a high fall risk. It was felt that patient would benefit from short stay skilled therapy. Goal was for the patient to return back home. Condition at Discharge: Stable Home Medications: Ambulatory Orders Medication Instructions Recorded Lovastatin 40 mg PO D 04/06/14 Acetaminophen [Tylenol] 650 mg PO Q6H PRN #0 tablet 10/10/16 Albuterol Sulfate [Ventolin HFN] 2.5 mg NEB Q4 PRN ampul.neb 10/10/16 Levocetirizine Dihydrochloride 5 mg PO 10/17/16 [Xyzal] Consultations this Visit: None Procedures this Visit: None Allergies/Adverse Reactions: Allergies Allergy/AdvReac Type Severity Reaction Status Date / Time warfarin [Warfarin] Allergy Severe Rash Verified 10/07/16 15:26 atenolol Allergy Intermediate Throat Verified 10/07/16 15:26 Swelling Penicillins Allergy Intermediate Rash Verified 10/07/16 15:26 pravastatin Allergy Intermediate Itchy Skin Verified 10/07/16 15:26 levofloxacin Allergy Mild Verified 10/07/16 15:26 pravastatin sodium Allergy Unknown Unverified 10/22/16 10:04 [From Pravachol] fluticasone furoate Allergy Verified 10/07/16 15:26 [From Breo Ellipta] vilanterol trifenatate Allergy Verified 10/07/16 15:26 [From Breo Ellipta] iodine AdvReac Tongue Verified 10/07/16 15:26 Swelling anabolic steriods Allergy Unknown Uncoded 10/22/16 10:04 - Final Diagnosis (1) Gait disturbance Problems: patient did improve with physical and occupational therapy. (2) Pneumonia Problems: improved (3) Vomiting Problems: felt to be related to antibiotics
[2016-10-17 08:43] VITALS: BP 111/51
[2016-10-17] MEDS: amLODIPine BESYLATE 5 MG TABLET PO SCH (09:13)
[2016-10-17] MEDS: FLUTICASONE PROPIONATE 120 SPRAY/16 GR BOTTLE NS SCH (09:14)
[2016-10-17] MEDS: LISINOPRIL 20 MG TABLET PO SCH (09:14)
== END 2016-10-17 10:10 | disposition home or self-care (01) | DRG 91 ==
LOC: SOUTH 08:41
PROVIDERS: ADMIT Family Medicine; ATTEND Family Medicine
DX: R26.89 Other abnormalities of gait and mobility (principal); J18.9 Pneumonia, unspecified organism; R11.2 Nausea with vomiting, unspecified
CPT/HCPCS: J1650

== ENCOUNTER 2016-11-01 07:42 | Emergency (ER) | payer MEDICARE, OTHER ==
[2016-11-01] MEDS ORDERED: DILTIAZEM HCL 25 MG/ 5ML VIAL IVP ONE ×2 (07:54→08:31)
[2016-11-01 08:04] LABS: BASOPHILS % 0.4 (0.0-1.5); EOSINOPHILS % 3.8 % (0.0-6.8); LYMPHOCYTES # 1.2 # k/uL (0.6-4.0); MEAN CORPUSCULAR HEMOGLOBIN 30.4 pg (28.0-34.0); MONOCYTES # 0.3 # k/uL (0.0-0.9); MONOCYTES % 4.4 % (0.0-11.0); NEUTROPHILS # 5.3 # k/uL (1.4-7.7)
--- NOTE | 2016-11-01 08:17 | ED Physician Documentation ---
Palpitations - HISTORIAN Historian: patient - HPI Stated Complaint: Chest Pain Chief Complaint: Palpitations Onset: other (unsure, 10/22/2015) Timing: worse Quality: fast, pounding heart beat Further Comments: yes (86 year old female patient brought in by family for evaluation. Family states they had a call from the pacemaker company yesterday and were told to have the patient checked. 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's mechanical supervisor is Dr Barry in [place].) - ROS CONST: recent illness (Hospitalized Sep 2016 - weakness, N/V) RESP: denies: productive cough, bloody cough, other GI/: denies: nausea, vomiting with blood, black stools, abdominal pain, diarrhea, problems urinating, vomiting, other MS/SKIN/LYMPH: denies: ankle swelling, calf pain, rash, leg pain, other EYES/ENT: none NEURO/PSYCH: none - SOCIAL HX Smoking History: non-smoker - FAMILY HX Family History: denies: none - PAST HX Cardiac Disease: CAD, AMI, other (ICD placement, HLD) Surgeries/Procedures: cardiac bypass, other (Right CEA, AVR replacement (bovine) , Reconstructive bladder) Allergies/Adverse Reactions: Allergies Allergy/AdvReac Type Severity Reaction Status Date / Time warfarin [Warfarin] Allergy Severe Rash Verified 11/01/16 08:18 atenolol Allergy Intermediate Throat Verified 11/01/16 08:18 Swelling Penicillins Allergy Intermediate Rash Verified 11/01/16 08:18 pravastatin Allergy Intermediate Itchy Skin Verified 11/01/16 08:18 levofloxacin Allergy Mild Verified 11/01/16 08:18 pravastatin sodium Allergy Unknown Unverified 11/01/16 08:18 [From Pravachol] fluticasone furoate Allergy Verified 11/01/16 08:18 [From Breo Ellipta] vilanterol trifenatate Allergy Verified 11/01/16 08:18 [From Breo Ellipta] iodine AdvReac Tongue Verified 11/01/16 08:18 Swelling anabolic steriods Allergy Unknown Uncoded 11/01/16 08:18 Home Medications: Ambulatory Orders Medication Instructions Recorded Lovastatin 40 mg PO D 04/06/14 Aspirin [Khadijah] 325 mg PO DAILY 11/01/16 Dorzolamide HCl [Trusopt] 1 drop OP BID 11/01/16 Montelukast Sodium [Singulair] 10 mg PO HS 11/01/16 Timolol Maleate [Timoptic] 1 drop OP BID 11/01/16 - VITAL SIGNS Vital Signs: Vital Signs Temp Pulse Resp BP Pulse Ox 103 H 24 137/83 98 11/01/16 08:30 11/01/16 07:45 11/01/16 07:45 11/01/16 08:30 - REVIEWED ASSESSMENTS Nursing Assessment Reviewed: Yes Vitals Reviewed: Yes Progress - Progress Progress: Afib on arrival with heart rate 120's. Family has been recording patient's heart rates since 10/22 - see attached. HR range 116-140, has likely been in AFib for some time. Family denies any history of A Fib. Old records reviewed. 0820 Family had call from Dr Barry's office, spoke with Dorene. States patient' s transmission on 10/28/2015 showed A fib. No changes in patient's medications. 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 Discussed plan of care with family, recommended transfer back to her mechanical supervisor due to her complicated history with anticoagulation and new onset of Afib 0850 Call to [facility] - spoke with María, patient accepted by Dr Barry ED Results Lab/Radiology - Lab Results Lab Results: Lab Results 11/01/16 11/01/16 11/01/16 07:55 07:55 07:55 WBC 7.20 K/ul K/ul (4.00-12.00) RBC 4.18 M/ul M/ul (3.90-5.20) Hgb 12.7 g/dL g/dL (12.0-16.0) Hct 39.2 % % (34.5-46.5) MCV 93.7 fl fl (80.0-100.0) MCH 30.4 pg pg (28.0-34.0) MCHC 32.5 g/dL g/dL (30.0-36.0) RDW 13.1 % % (11.3-14.3) Plt Count 208 K/mm3 K/mm3 (130-400) Neut % (Auto) 73.4 % % (39.0-79.0) Lymph % (Auto) 16.8 % % (16.0-50.0) [place] % (Auto) 4.4 % % (0.0-11.0) Eos % (Auto) 3.8 % % (0.0-6.8) Baso % (Auto) 0.4 (0.0-1.5) Neut # 5.3 # k/uL # k/uL (1.4-7.7) Lymph # 1.2 # k/uL # k/uL (0.6-4.0) [place] # 0.3 # k/uL # k/uL (0.0-0.9) Eos # 0.3 # k/uL # k/uL (0.0-0.6) Baso # 0.0 # k/uL # k/uL (0.0-0.5) Reactive Lymphs % 1.1 % % (0.0-5.0) Reactive Lymphs # 0.1 # k/uL # k/uL (0.0-0.8) Sodium 136 mmol/L mmol/L (136-145) Potassium 4.7 mmol/L mmol/L (3.5-5.0) Chloride 104 mmol/L mmol/L (98-110) Carbon Dioxide 24 mmol/L mmol/L (20-32) BUN 22 mg/dL mg/dL (10-26) Creatinine 1.5 mg/dL mg/dL (0.4-1.5) Estimated Creat Clear 31 Est GFR ( Amer) 42 L (60 - ) Est GFR (Non-Af Amer) 35 L (60 - ) Glucose 105 mg/dL H mg/dL (70-99) Calcium 9.2 mg/dL mg/dL (8.5-10.5) Total Bilirubin 0.8 mg/dL mg/dL (0.2-1.2) AST 31 U/L U/L (0-41) ALT 17 U/L U/L (0-45) Alkaline Phosphatase 130 U/L H U/L (46-116) Creatine Kinase 24 U/L U/L (0-225) Troponin I < 0.03 ng/mL L ng/mL (0.03-0.06) NT-Pro-B Natriuret Pep 4624.6 pg/mL H pg/mL (15.0-450.0) Total Protein 7.9 g/dL g/dL (6.0-8.5) Albumin 4.0 g/dL g/dL (3.0-5.5) - Orders Orders: ED Orders Category Date Time Status Continuous EKG monitoring Q30M Care 11/01/16 07:52 Active Continuous Pulse Oximetry Q30M Care 11/01/16 07:52 Active Shi [Urinary catheterization] 1T Care 11/01/16 08:[address] Saline Lock/IV NOW Care 11/01/16 07:52 Completed CHEST 1 VIEW [RAD] Stat Exams 11/01/16 07:52 Ordered BNP [NT-proBNP] Stat Lab 11/01/16 07:55 Completed CBC/PLATELET/DIFF Stat Lab 11/01/16 07:55 Completed CMP Stat Lab 11/01/16 07:55 Results CREATINE KINASE Stat Lab 11/01/16 07:55 Results TROPONIN I (cTnI) Stat Lab 11/01/16 07:55 Completed UA W/MICRO IF INDICATED Stat Lab 11/01/16 07:52 Ordered Diltiazem HCl [Cardizem] Med 11/01/16 07:54 Discontinued 10 mg IVP STAT ONE Diltiazem HCl [Cardizem] Med 11/01/16 08:31 Once 5 mg IVP STAT ONE Diltiazem HCl [Cardizem] 125 mg Med 11/01/16 08:31 Ordered 0.9 % Sodium Chloride [Sodium Chloride] 100 ml IV 1T Furosemide [Lasix] Med 11/01/16 08:26 Discontinued 40 mg IVP NOW ONE Oxygen Daily Oxygen 11/01/16 08:00 Ordered EKG WITH COMPARISON Stat Ther 11/01/16 07:52 Ordered Palpitations Physical Exam - EXAM General Appearance: mild distress (anxious) EENT: eye inspection normal, LIAT RESPIRATORY: no respiratory distress, breath sounds nml, chest non-tender, respiratory distress CVS: heart sounds normal, equal pulses, no murmur, no gallop, PMI nml, no JVD, no friction rub, irregularly irregular rhy ABDOMEN: soft, no organomegaly, normal bowel sounds, no abdominal bruit, no distension BACK: normal inspection, no CVA tenderness SKIN: warm/dry, pallor EXTREMITIES: non-tender, normal range of motion, no evidence of injury, no edema , J, 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: oriented X3, CN's nml as tested, motor nml, sensation nml, mood/affect nml Discharge Clincal Impression: New onset a-fib CHF (congestive heart failure) Qualifiers: Congestive heart failure type: combined Congestive heart failure chronicity: acute Qualified Code(s): I50.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
[2016-11-01] MEDS ORDERED: FUROSEMIDE 40 MG/4 ML VIAL IVP ONE (08:26)
[2016-11-01] MEDS ORDERED: DILTIAZEM HCL 125 MG in 0.9 % SODIUM CHLORIDE 100 ML IV STA (08:31)
[2016-11-01 08:44] LABS: APPEARANCE,URINE Clear (CLEAR); COLOR,URINE Yellow (YELLOW); OCCULT BLOOD,URINE Negative (NEGATIVE); UROBILINOGEN URINE 0.2 Eu (0.2-1.0)
[2016-11-01 09:16] VITALS: BP 101/69
--- NOTE | 2016-11-01 16:20 | Diagnostic Imaging Report ---
[facility] [address] [facility].[address] [id number] Report Submission Date: Nov 01, 2016 9:59:39 AM [facility] Patient Study Name: LUZ MARIA BALES Date: Nov 01, 2016 8:03:02 AM [facility] Modality Type: CR Gender: F Description: CHEST : 28 Institution: [facility] Physician LUIS MANLEY (PROCESS SAFETY SPECIALIST) - ER The view of the chest. Clinical history: Dyspnea Findings: The comparison made to prior study. The heart size remains mildly enlarged. There is mild central pulmonary venous congestion, unchanged. There are unchanged bilateral infiltrates, greatest right upper lobe. Given the unchanged appearance, this could represent fibrosis. No pleural effusion or pneumothorax. Impression: Unchanged chest exam. Electronically signed on Nov 01, 2016 9:59:39 AM [facility] by: Frankie JOSEPH
== END 2016-11-01 09:14 | disposition short-term general hospital (02) ==
LOC: ED 07:42
DX: I50.41 Acute combined systolic (congestive) and diastolic (congestive) heart failure (principal); I48.91 Unspecified atrial fibrillation
CPT/HCPCS: 71010; 80053; 81002; 82550; 83880; 84484; 85025; J1940; J3490; 51702; 96374; 99283; 99284; S1016

== ENCOUNTER 2016-11-12 09:12 | Outpatient (CLI) | payer MEDICARE, OTHER | END 2016-11-12 09:13 | LOC: LAB 09:12 | PROVIDERS: ATTEND Family Medicine | DX: M81.0 Age-related osteoporosis without current pathological fracture (principal); Z87.310 Personal history of (healed) osteoporosis fracture; E55.9 Vitamin D deficiency, unspecified; R26.9 Unspecified abnormalities of gait and mobility | CPT/HCPCS: 36415; 82306; 82310 ==

== ENCOUNTER 2017-04-24 09:58 | Outpatient (CLI) | payer MEDICARE, OTHER ==
[2017-04-24 11:09] LABS: eGFR (African) > 60; eGFR (Non-African) > 60
== END 2017-04-24 10:00 ==
LOC: LAB 09:58
PROVIDERS: ATTEND Clinical Nurse Specialist Medical-Surgical
DX: M81.0 Age-related osteoporosis without current pathological fracture (principal); Z87.310 Personal history of (healed) osteoporosis fracture; E55.9 Vitamin D deficiency, unspecified; R26.9 Unspecified abnormalities of gait and mobility
CPT/HCPCS: 36415; 80053; 82306

== ENCOUNTER 2017-08-10 07:34 | Emergency (ER) | payer MEDICARE, OTHER ==
--- NOTE | 2017-08-10 07:45 | ED Physician Documentation ---
Low Back Pain - HISTORIAN Historian: patient - HPI Stated Complaint: back pain Chief Complaint: Low Back Pain/ Injury History: back pain, other (right hip pain ) Onset: days ago (3) Duration: continues in ED Recent Injury: Yes (she had a large dresser mirror fall on her ) Context: other (mirror fell on her right hip directly ) Where: home Other Injuries: back, other (hip right ) Severity: moderate Quality: burning, sharp Associated Symptoms: denies: fever Worsened By:: other (laying down flat ) Further Comments: yes (she states she has decreased pain with sitting and standing) - ROS CONST: no problems CVS/RESP: none EYES/ENT: none MS/SKIN/LYMPH: none Neuro/Psych: none - PAST HX Past History: other (CABBAGE, Caroid, back surgery, hyperlipidemia , Pacer, HTN , Afib, Pulmonary fibrosis ) Other History: other Surgeries/Procedures: other (see above ) Allergies/Adverse Reactions: Allergies Allergy/AdvReac Type Severity Reaction Status Date / Time warfarin [Warfarin] Allergy Severe Rash Verified 08/10/17 07:46 atenolol Allergy Intermediate Throat Verified 08/10/17 07:46 Swelling Penicillins Allergy Intermediate Rash Verified 08/10/17 07:46 pravastatin Allergy Intermediate Itchy Skin Verified 08/10/17 07:46 levofloxacin Allergy Mild Verified 08/10/17 07:46 pravastatin sodium Allergy Unknown Verified 08/10/17 07:46 [From Pravachol] fluticasone furoate Allergy Verified 08/10/17 07:46 [From Breo Ellipta] vilanterol trifenatate Allergy Verified 08/10/17 07:46 [From Breo Ellipta] iodine AdvReac Tongue Verified 08/10/17 07:46 Swelling anabolic steriods Allergy Unknown Uncoded 08/10/17 07:46 Home Medications: Ambulatory Orders Medication Instructions Recorded Lovastatin 40 mg PO D 04/06/14 Aspirin [Khadijah] 325 mg PO DAILY 11/01/16 Dorzolamide HCl [Trusopt] 1 drop OP BID 11/01/16 Montelukast Sodium [Singulair] 10 mg PO HS 11/01/16 Timolol Maleate [Timoptic] 1 drop OP BID 11/01/16 - SOCIAL HX Smoking History: non-smoker Alcohol Use: none Drug Use: none - FAMILY HX Family History: none - VITAL SIGNS Vital Signs: Vital Signs Temp Pulse Resp BP Pulse Ox 98.4 F 92 H 16 193/95 95 08/10/17 07:48 08/10/17 07:48 08/10/17 07:48 08/10/17 07:48 08/10/17 07:48 - REVIEWED ASSESSMENTS Nursing Assessment Reviewed: Yes Vitals Reviewed: Yes ED Results Lab/Radiology - Radiology Radiology Impressions: Lumbar spine, 3 views. History: BACK PAIN, FALL Findings: There is mild rightward curvature in the lumbar spine. The vertebral body height and alignment are normal. Multilevel mild intervertebral disc space narrowing with multilevel facet arthropathy in the lower lumbar spine. There is atherosclerosis of the aorta. Impression: 1. No acute osseous abnormality. 2. Mild rightward curvature with multilevel spondylosis Electronically signed on Aug 10, 2017 8:25:24 AM CHARGE OPERATOR by: Ivan Pretty Right hip, 2 views History: Hip pain. Fall Findings: The osseous structures are intact without acute fracture. There is narrowing the right hip joint space. There is no soft tissue swelling. Vascular calcifications are present. Impression: 1. No acute osseous abnormality. 2. Narrowing of the right hip joint space Electronically signed on Aug 10, 2017 8:25:45 AM CHARGE OPERATOR by: Ivan Pretty - Orders Orders: ED Orders Category Date Time Status L SPINE 2 OR 3 VIEWS [RAD] Stat Exams 08/10/17 Taken RT HIP 2VIEW COMPLETE [RAD] Urgent Exams 08/10/17 Ordered Ketorolac Tromethamine [Toradol] Med 08/10/17 08:29 Once 30 mg IM NOW ONE Low Back Pain/Injury - Physical Exam General Appearance: no acute distress EENT: eye inspection normal Neck: non-tender, painless ROM Resp/CVS: chest non-tender, breath sounds nml, heart sounds nml, no resp. distress, lungs clear, reg. rate & rhythm Abdomen: non-tender Back: other (right lower back pain with palpation. she does not indicate any increased pain with movement on exam right hip pain with flexion and extension ) Neuro/Psych: oriented x3, motor nml, sensation nml Skin: warm/dry, normal color Extremities: non-tender, normal range of motion, no evidence of injury, no edema Discharge Clincal Impression: Low back pain Qualifiers: Chronicity: acute Back pain laterality: right Sciatica presence: unspecified whether sciatica present Qualified Code(s): M54.5 - Low back pain Referrals: Nikolay Sommers MD [Primary Care Provider] - 2 Days Condition: Stable Disposition: 01 HOME, SELF-CARE Decision to Admit: NO Date of Decison to Admit: 08/10/17 Decision Time: 08:32
[2017-08-10] MEDS ORDERED: KETOROLAC TROMETHAMINE 30 MG/1ML VIAL IM ONE (08:29)
--- NOTE | 2017-08-10 08:31 | Diagnostic Imaging Report ---
NOMI MCKNIGHT [facility] [address] [facility] [address] [place] [address]. 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 History: BACK PAIN, FALL Findings: There is mild rightward curvature in the lumbar spine. The vertebral body height and alignment are normal. Multilevel mild intervertebral disc space narrowing with multilevel facet arthropathy in the lower lumbar spine. There is atherosclerosis of the aorta. Impression: 1. No acute osseous abnormality. 2. Mild rightward curvature with multilevel spondylosis Electronically signed on Aug 10, 2017 8:25:24 AM DREDGE WORKER by: Ivan JOSEPH
[2017-08-10] MEDS ORDERED: KETOROLAC TROMETHAMINE 30 MG/1ML VIAL ONE (08:32)
--- NOTE | 2017-08-10 08:32 | Diagnostic Imaging Report ---
NOMI MCKNIGHT [facility] [address] [facility] [address] [place] [address]. [address] Report Submission Date: Aug 10, 2017 8:25:45 AM OPTICAL ADVISOR Patient Study Name: LUZ MARIA BALES Date: Aug 10, 2017 8:15:51 AM OPTICAL ADVISOR Modality Type: CR Gender: F Description: PELVIS : 28 Institution: [facility] Physician: NOMI MCKNIGHT Right hip, 2 views History: Hip pain. Fall Findings: The osseous structures are intact without acute fracture. There is narrowing the right hip joint space. There is no soft tissue swelling. Vascular calcifications are present. Impression: 1. No acute osseous abnormality. 2. Narrowing of the right hip joint space Electronically signed on Aug 10, 2017 8:25:45 AM OPTICAL ADVISOR by: Ivan JOSEPH
[2017-08-10 08:42] VITALS: BP 179/82
== END 2017-08-10 08:41 | disposition home or self-care (01) ==
LOC: ED 07:34
DX: M54.5 Low back pain (principal)
CPT/HCPCS: 72100; 73502; J1885; 96372; 99283

== ENCOUNTER 2017-10-30 09:14 | Outpatient (CLI) | payer MEDICARE, OTHER | END 2017-10-30 09:15 | LOC: LAB 09:14 | PROVIDERS: ATTEND Clinical Nurse Specialist Medical-Surgical | DX: M81.0 Age-related osteoporosis without current pathological fracture (principal); Z87.310 Personal history of (healed) osteoporosis fracture; E55.9 Vitamin D deficiency, unspecified; R26.9 Unspecified abnormalities of gait and mobility | CPT/HCPCS: 36415; 82306; 82310 ==

== ENCOUNTER 2018-02-08 09:43 | Emergency (ER) | payer MEDICARE, OTHER ==
--- NOTE | 2018-02-08 10:18 | ED Physician Documentation ---
Upper Extremity Problem - HPI Stated Complaint: Right Elbow Pain Chief Complaint: Upper Extremity Problem Additional Information: Right elbow pain began yesterday w/o injury, and kept her awake all night. This elbow has hurt in the past, with weather changes. She blames the rain; she has also been cleaning her cabinets and lifting more than usual. Has taken tylenol w /o relief. Can't take NSAID's 2/2 Xarelto. Says her coding spec told her no more than 3 tylenol/day. - ROS CONST: no problems - PAST HX Past History: other (heart ) Surgeries/Procedures: other ("open heart," pacemaker) Allergies/Adverse Reactions: Allergies Allergy/AdvReac Type Severity Reaction Status Date / Time warfarin [Warfarin] Allergy Severe Rash Verified 08/10/17 07:46 atenolol Allergy Intermediate Throat Verified 08/10/17 07:46 Swelling Penicillins Allergy Intermediate Rash Verified 08/10/17 07:46 pravastatin Allergy Intermediate Itchy Skin Verified 08/10/17 07:46 levofloxacin Allergy Mild Verified 08/10/17 07:46 pravastatin sodium Allergy Unknown Verified 08/10/17 07:46 [From Pravachol] fluticasone furoate Allergy Verified 08/10/17 07:46 [From Breo Ellipta] vilanterol trifenatate Allergy Verified 08/10/17 07:46 [From Breo Ellipta] iodine AdvReac Tongue Verified 08/10/17 07:46 Swelling anabolic steriods Allergy Unknown Uncoded 08/10/17 07:46 Home Medications: Ambulatory Orders Medication Instructions Recorded Lovastatin 40 mg PO D 04/06/14 Aspirin [Khadijah] 325 mg PO DAILY 11/01/16 Dorzolamide HCl [Trusopt] 1 drop OP BID 11/01/16 Montelukast Sodium [Singulair] 10 mg PO HS 11/01/16 Timolol Maleate [Timoptic] 1 drop OP BID 11/01/16 - SOCIAL HX Smoking History: non-smoker - FAMILY HX Family History: no significant history - VITAL SIGNS Vital Signs: Vital Signs Temp Pulse Resp BP Pulse Ox 98.6 F 86 18 147/67 94 02/08/18 09:45 02/08/18 09:45 02/08/18 09:45 02/08/18 09:45 02/08/18 09:45 - REVIEWED ASSESSMENTS Nursing Assessment Reviewed: Yes Vitals Reviewed: Yes Progress - Progress Progress: Patient Study Name: LUZ MARIA BALES Date: February 08, 2018 9:53:00 AM CDT Modality Type: DX Gender: F Description: UPPER EXTREMITY : 28 Institution: [facility] Physician: VANGIE FALCON - ER 3 views of the right elbow History: RT ELBOW PAIN X 1 DAY UNABLE TO STRAIGHTEN pain since rain began no similar comparison studies Multiple artifacts are present over the study which limit evaluation No obvious evidence of acute fracture or dislocation right elbow. Extensive degenerative changes are noted. No elbow joint effusion. Soft tissue calcification is present especially on the lateral compartment and ventrally Impression: 1. Study limited by artifacts. No obvious evidence of acute fracture or dislocation. 2. Degenerative changes. Soft tissue calcification. Consider MR as needed. Electronically signed on February 08, 2018 10:16:26 AM CDT by: Martha Joshi ED Results Lab/Radiology - Orders Orders: ED Orders Category Date Time Status ELBOW 3 VIEWS [RAD] Stat Exams 02/08/18 Taken traMADol HCL [Ultram] Med 02/08/18 10:22 Once 50 mg PO NOW ONE EKG WITH COMPARISON Stat Ther 02/08/18 Ordered Upper Extremity Problem - EXAM General Appearance: alert, mild distress, other (very talkative) Skin: warm/dry, normal color Shoulder Exam: normal inspection, non-tender, no evidence of injury, limited ROM (right, 2/2 elbow pain; longstanding decreased abduction?) Elbow/Forearm Exam: normal inspection, non-tender, no evidence of injury, limited ROM (right, 50 degrees extension) Wrist Exam: normal inspection, no evidence of injury (R radial pulse 2+) Hand Exam: normal inspection, no evidence of injury Neuro/Tendon: normal sensation, normal motor functions, normal tendon functions EENT: ENT inspection normal CVS: reg rate & rhythm, heart sounds normal Vascular: no vascular compromise Peripheral: sensation nml, motor nml Central: CN's nml as tested, motor nml, sensation nml Respiratory: no resp. distress, breath sounds nml Discharge Clincal Impression: Right elbow pain Referrals: Nikolay Sommers MD [Primary Care Provider] - 2 Days Condition: Good Disposition: 01 HOME, SELF-CARE Decision to Admit: NO Decision Time: 10:25
[2018-02-08] MEDS ORDERED: traMADol HCL 50 MG TABLET PO ONE (10:22)
[2018-02-08 10:46] VITALS: BP 138/68
--- NOTE | 2018-02-08 16:08 | Diagnostic Imaging Report ---
VANGIE FALCON [facility] [address] [facility] [address] [address] Report Submission Date: February 08, 2018 10:16:26 AM CDT Patient Study Name: LUZ MARIA BALES Date: February 08, 2018 9:53:00 AM CDT Modality Type: DX Gender: F Description: UPPER EXTREMITY : 28 Institution: [facility] Physician: VANGIE FALCON 3 views of the right elbow History: RT ELBOW PAIN X 1 DAY UNABLE TO STRAIGHTEN pain since rain began no similar comparison studies Multiple artifacts are present over the study which limit evaluation No obvious evidence of acute fracture or dislocation right elbow. Extensive degenerative changes are noted. No elbow joint effusion. Soft tissue calcification is present especially on the lateral compartment and ventrally Impression: 1. Study limited by artifacts. No obvious evidence of acute fracture or dislocation. 2. Degenerative changes. Soft tissue calcification. Consider MR as needed. Electronically signed on February 08, 2018 10:16:26 AM CDT by: Martha JOSEPH
== END 2018-02-08 10:45 | disposition home or self-care (01) ==
LOC: ED 09:43
DX: M25.521 Pain in right elbow (principal)
CPT/HCPCS: 73080; 99284

== ENCOUNTER 2018-04-12 12:39 | Emergency (ER) | payer MEDICARE, OTHER ==
--- NOTE | 2018-04-12 12:53 | ED Physician Documentation ---
General Adult - HISTORIAN Historian: patient - HPI Stated Complaint: sob Chief Complaint: General Adult Onset: days ago Timing: still present Severity: moderate Further Comments: yes (Pt is an 88 yo female with c/o non-productive cough x 2 days. No chest pain. No n/v. Pt says she thinks she has pneumonia. No fever. Pt has hx pulmonary fibrosis, CHF, CAD, Afib, HLD, HTN.) - ROS CONST: no problems EYES/ENT: none CVS/RESP: shortness of breath, cough GI/: none MS/SKIN/LYMPH: none - PAST HX Past History: other (Afib, CAD, CHF, HLD, HTN, Pulmonary fibrosis) Allergies/Adverse Reactions: Allergies Allergy/AdvReac Type Severity Reaction Status Date / Time warfarin [Warfarin] Allergy Severe Rash Verified 04/12/18 13:19 atenolol Allergy Intermediate Throat Verified 04/12/18 13:19 Swelling Penicillins Allergy Intermediate Rash Verified 04/12/18 13:19 pravastatin Allergy Intermediate Itchy Skin Verified 04/12/18 13:19 levofloxacin Allergy Mild Verified 04/12/18 13:19 pravastatin sodium Allergy Unknown Verified 04/12/18 13:19 [From Pravachol] fluticasone furoate Allergy Verified 04/12/18 13:19 [From Breo Ellipta] vilanterol trifenatate Allergy Verified 04/12/18 13:19 [From Breo Ellipta] iodine AdvReac Tongue Verified 04/12/18 13:19 Swelling anabolic steriods Allergy Unknown Uncoded 04/12/18 13:19 Home Medications: Ambulatory Orders Medication Instructions Recorded Aspirin [Khadijah] 325 mg PO DAILY 11/01/16 Dorzolamide HCl [Trusopt] 1 drop OP BID 11/01/16 Montelukast Sodium [Singulair] 10 mg PO HS 11/01/16 Timolol Maleate [Timoptic] 1 drop OP BID 11/01/16 traMADol HCL [Ultram] 50 mg PO Q4H #20 tablet 02/08/18 Doxycycline Monohydrate 100 mg PO Q12H #20 tablet 04/12/18 - SOCIAL HX Smoking History: quit greater than 1 year - FAMILY HX Family History: No - VITAL SIGNS Vital Signs: Vital Signs Temp Pulse Resp BP Pulse Ox 138/68 02/08/18 10:45 - REVIEWED ASSESSMENTS Nursing Assessment Reviewed: Yes Vitals Reviewed: Yes Progress - Progress Progress: CXR: No prior examination is available for comparison. Sternal wires indicate prior cardiac surgery. Left subclavian dual lead transvenous pacemaker is present. Moderate diffuse bilateral lung infiltrates are present. There is no pneumothorax or pleural effusion. Heart size and pulmonary vascularity are normal. Impression: Diffuse bilateral lung infiltrates. Pt maintained SpO2 95% throughout ER visit. No elevated wbc. Lasix 20 mg IV in ER Rx Doxycycline 100 mg. Take one by mouth every 12 hours for 10 days. Avoid prolonged sun exposure while taking this medication. Continue home meds. Follow up with your primary provider later this week. Return to ER if your symptoms worsen or you have new concerns. - EKG/XRAY/CT EKG: NSR (HR=79; 1st degree AV block; LVH) XRAY: chest (Impression: Diffuse bilateral lung infiltrates) General Adult Physical Exam - PHYSICAL EXAM GENERAL APPEARANCE: mild distress EENT: pharynx normal NECK: normal inspection, supple RESPIRATORY: no resp distress, chest non-tender, wheezes, rales CVS: reg rate & rhythm, heart sounds normal ABDOMEN: soft, no organomegaly, normal bowel sounds BACK: normal inspection, no CVA tenderness SKIN: warm/dry, normal color EXTREMITIES: non-tender, normal range of motion, no edema NEURO: oriented X3, motor nml, sensation nml Discharge Clincal Impression: Pneumonia Qualifiers: Pneumonia type: due to unspecified organism Laterality: bilateral Lung location : lower lobe of lung Qualified Code(s): J18.1 - Lobar pneumonia, unspecified organism Prescriptions: Doxycycline Monohydrate 100 mg PO Q12H #20 tablet Referrals: Nikolay Sommers MD [Primary Care Provider] - Condition: Stable Disposition: 01 HOME, SELF-CARE Decision to Admit: NO Decision Time: 15:45
[2018-04-12 14:22] LABS: BASOPHILS % 0.5 (0.0-1.5); EOSINOPHILS % 3.9 % (0.0-6.8); MEAN CORPUSCULAR HEMOGLOBIN 31.4 pg (28.0-34.0); MEAN CORPUSCULAR VOLUME 94.8 fl (80.0-100.0); MONOCYTES % 4.7 % (0.0-11.0); NEUTROPHILS # 7.3 # k/uL (1.4-7.7)
[2018-04-12 14:28] LABS: eGFR (African) 34
[2018-04-12] MEDS ORDERED: FUROSEMIDE 20 MG/2 ML VIAL ONE (15:19)
[2018-04-12] MEDS ORDERED: FUROSEMIDE 20 MG/2 ML VIAL IVP ONE (15:19)
[2018-04-12 15:43] VITALS: BP 142/77
--- NOTE | 2018-04-13 15:44 | Diagnostic Imaging Report ---
ARLEEN BECKHAM [facility] [address] [facility] [address] [address] Report Submission Date: Apr 12, 2018 2:35:12 PM CDT Patient Study Name: LUZ MARIA BALES Date: Apr 12, 2018 2:10:09 PM CDT Modality Type: DX Gender: F Description: CHEST : 28 Institution: [facility] Physician: ARLENE BECKHAM Chest, AP portable History: Cough Findings: No prior examination is available for comparison. Sternal wires indicate prior cardiac surgery. Left subclavian dual lead transvenous pacemaker is present. Moderate diffuse bilateral lung infiltrates are present. There is no pneumothorax or pleural effusion. Heart size and pulmonary vascularity are normal. Impression: Diffuse bilateral lung infiltrates. Electronically signed on Apr 12, 2018 2:35:12 PM CDT by: Cornelio JOSEPH
== END 2018-04-12 15:42 | disposition home or self-care (01) ==
LOC: ED 12:39
DX: J18.1 Lobar pneumonia, unspecified organism (principal)
CPT/HCPCS: 71045; 80053; 82550; 83880; 84484; 85025; 87040; 93005; J1940; 96374; 99284; S1016

== ENCOUNTER 2018-06-10 09:07 | Outpatient (CLI) | payer MEDICARE, OTHER ==
[2018-06-10 10:25] LABS: eGFR (Non-African) 38
--- NOTE | 2018-06-10 11:04 | Diagnostic Imaging Report ---
ERIN MARS [facility] [address] [facility] [address] [address] Report Submission Date: Jun 10, 2018 10:17:22 AM CDT Patient Study Name: LUZ MARIA BALES Date: Jun 10, 2018 9:24:51 AM CDT Modality Type: CT\SR Gender: F Description: CT BRAIN W/O CONTRAST : 28 Institution: [facility] Physician: ERIN MARS Head CT without contrast History: Decreased memory Technique: Axial images were obtained from skullbase to the vertex without contrast. There are no comparison studies. There is generalized age-related cortical volume loss. Fairly extensive, bilaterally symmetric areas of periventricular to subcortical white matter lucency are present consistent with extensive small vessel ischemic disease. Multifocal hypodensities of the cerebellum are present consistent with multifocal bilateral cerebellar infarcts. Some of these infarcts do appear to be chronic while others are age indeterminate. Bilateral vertebral artery atherosclerosis is present. Atherosclerotic calcifications are present through the carotid siphons. There is no intra or extra-axial hemorrhage. Paranasal sinuses and mastoid air cells are clear. The calvarium is intact. Impression: Age-related cortical volume loss with extensive small vessel ischemic disease. 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 Some of these infarcts are chronic while others are age indeterminate. Consider MRI. Atherosclerotic calcifications of the vertebral arteries and carotid siphons. Electronically signed on Jun 10, 2018 10:17:22 AM CDT by: Maria E JOSEPH
[2018-06-10 18:51] LABS: BASO % 0.3 % (0.0-1.5); EOS % 2.6 % (0.0-6.8); LYMPH ABS # 1.36 thou/uL (0.60-4.00); MCH. 29.8 pg (28.0-34.0); MCV 92.1 fL (80.0-100.0); MONOCYTE % 6.7 % (0.0-11.0); MONOCYTE ABS # 0.67 thou/uL (0.00-0.90); PLATELET COUNT 280 thou/uL (130-400)
[2018-06-10 19:21] LABS: T3-UPTAKE 33.9 % (25.4-41.2)
== END 2018-06-10 09:10 ==
LOC: RAD 09:07
PROVIDERS: ATTEND Family Medicine
DX: R41.3 Other amnesia (principal); I10 Essential (primary) hypertension; I48.91 Unspecified atrial fibrillation
CPT/HCPCS: 36415; 70450; 80053; 84436; 84479; 85025

== ENCOUNTER 2018-06-25 05:51 | Inpatient (IN) | payer MEDICARE, OTHER ==
[2018-06-25] MEDS ORDERED: MAGNESIUM SULFATE/D5W 1 GM in PREMIX BAG 1 BAG IV ONE (05:58)
--- NOTE | 2018-06-25 06:06 | ED Physician Documentation ---
Chest Pain - HISTORIAN Historian: patient - HPI Stated Complaint: chest pain Chief Complaint: Chest Pain Additional Information: Patient with a past medical history of atrial fibrillation (on Eliquis), CHF, pulmonary fibrosis, CAD (s/p CABG), essential HTN, pacemaker presented to ED via NH with sudden onset of substernal chest pain, dull achy 03/25 with associated shortness of breath. She denies any radiation of the pain, nausea, vomiting or diaphoresis. Patient was placed on 2 liters oxygen upon arrival to ED with improvement in chest pain. Of note: Patient refused transport to [facility] and requested to come to [facility]. Onset: hours (2) Timing: sudden onset Duration: constant Last known Well Date: 06/25/18 Last Known Well Time: 00:00 Context: sleep Severity: moderate, severe Quality: dull, aching (03/25) Chest Pain Radiation: no radiation Chest Pain Signs/Symptoms: denies: nausea, vomiting, diaphoresis, dizziness, palpitations Worsened By: nothing Relieved By: nothing Further Comments: no - ROS CONST: denies: recent illness, fever MS/LYMPH: denies: ankle swelling GI/: denies: abdominal pain EYES/ENT: none SKIN/ENDO: none NEURO/PSYCH: denies: headache - PAST HX FL risk factors: CHF, A-Fib, other (pulmonary fibrosis) DVT/PE Risk Factors: none TAD/AAA risk factors: none Neuro deficit: none GI disease: none Lung disease: other (pulmonary fibrosis) Surgeries/Procedures: cardiac bypass (with valve replacement) - SOCIAL HX Smoking History: non-smoker Alcohol Use: none Drug Use: none - FAMILY HX Family HX: none - VITAL SIGNS Vital Signs: Vital Signs Temp Pulse Resp BP Pulse Ox 142/77 04/12/18 15:42 - REVIEWED ASSESSMENTS Nursing Assessment Reviewed: Yes Vitals Reviewed: Yes <Krista Guzman - Last Filed: 06/25/18 07:10> - HPI Further Comments: no - VITAL SIGNS Vital Signs: Vital Signs Temp Pulse Resp BP Pulse Ox 97.5 F L 93 H 18 112/77 94 06/25/18 05:55 06/25/18 05:55 06/25/18 05:55 06/25/18 05:55 06/25/18 05:55 <MIRIAM BLACK - Last Filed: 06/25/18 10:14> - PAST HX Allergies/Adverse Reactions: Allergies Allergy/AdvReac Type Severity Reaction Status Date / Time warfarin [Warfarin] Allergy Severe Rash Verified 06/25/18 06:43 atenolol Allergy Intermediate Throat Verified 06/25/18 06:43 Swelling Penicillins Allergy Intermediate Rash Verified 06/25/18 06:43 pravastatin Allergy Intermediate Itchy Skin Verified 06/25/18 06:43 levofloxacin Allergy Mild Verified 06/25/18 06:43 pravastatin sodium Allergy Unknown Verified 06/25/18 06:43 [From Pravachol] fluticasone furoate Allergy Verified 06/25/18 06:43 [From Breo Ellipta] vilanterol trifenatate Allergy Verified 06/25/18 06:43 [From Breo Ellipta] iodine AdvReac Tongue Verified 06/25/18 06:43 Swelling anabolic steriods Allergy Unknown Uncoded 06/25/18 06:43 Home Medications: Ambulatory Orders Medication Instructions Recorded Montelukast Sodium [Singulair] 10 mg PO HS 11/01/16 Diltiazem HCl [Diltiazem ER] 240 mg PO DAILY 06/25/18 Progress - Results/Orders Results/Orders: 0700 Patient care is transferred to NICK Pineda at shift change. Miriam was updated on patient condition and pending labs. - EKG/XRAY/CT EKG: NSR (84 bpm, frequent PVCs, 2nd degree AV block) <Krista Guzman - Last Filed: 06/25/18 07:10> - Progress Progress: 0715 Assumed care of patient; sleeping on stretcher. Monitor with Afib, rate 80-90; intermittent pacing. 0800 Patient awake, denies any chest pain at present. 1-2+ edema noted in ankles, BBS with fine crackles, O2 at 2L NC - [id number]%, non-labored; Afib on monitor. EKG 0554 Atrial Fib, rate 84 - patient with history of chronic A Fib 0930 Results back from CBC and Trop T. Discussed with patient, son and daughter. Patient is followed by Dr Barry, cardiology at [facility] - offered transfer to [facility]. Patient requesting admission at [facility] with Dr Sommers. Risk and benefits discussed. Patient denies any chest pain at present. [address] Sommers. Accepted for admission with Trop T .018 - likely related to elevated BNP; will repeat Trop. Last echo result not available at this time. Last EKG patient was in SR. 1000 Call to [facility] to clarify home medications. Last fill on Cardizem 240mg was 02/25/18, patient is filling Eliquis 2.5mg in April. Dr Sommers notified. Dr Sommers will restart Cardizem dose after seeing patient. <MIRIAM BLACK - Last Filed: 06/25/18 10:14> ED Results Lab/Radiology - Orders Orders: ED Orders Category Date Time Status Place IV Lock 1T Care 06/25/18 05:56 Ordered CBC REF Stat Lab 06/25/18 Ordered CMP Routine Lab 06/25/18 Ordered MAGNESIUM Stat Lab 06/25/18 Ordered NT-proBNP Stat Lab 06/25/18 Ordered URINALYSIS Routine Lab 06/25/18 Ordered URINE CULTURE Stat Lab 06/25/18 05:58 Ordered Magnesium Sulfate/D5w [Magnesium-D5w 1 gm/100 ml Soln] Med 06/25/18 05:58 Ordered 1 gm Premix Bag [Premix Fluid] 1 bag IV NOW EKG WITH COMPARISON Stat Ther 06/25/18 Ordered <Krista Guzman - Last Filed: 06/25/18 07:10> - Lab Results Lab Results: Lab Results 06/25/18 06/25/18 Unknown Unknown Sodium 135 mmol/L L mmol/L (136-145) Potassium 4.0 mmol/L mmol/L (3.5-5.1) Chloride 104 mmol/L mmol/L (98-107) Carbon Dioxide 23 mmol/L mmol/L (22-30) BUN 21 mg/dL H mg/dL (7-17) Creatinine 1.80 mg/dL H mg/dL (0.52-1.04) Estimated Creat Clear 22 Est GFR ( Amer) 34 L (60 - ) Est GFR (Non-Af Amer) 28 L (60 - ) Glucose 93 mg/dL mg/dL (74-106) Calcium 8.6 mg/dL mg/dL (8.4-10.2) Total Bilirubin 0.6 mg/dL mg/dL (0.2-1.3) AST 94 U/L H U/L (15-46) ALT 65 U/L U/L (13-69) Alkaline Phosphatase 282 U/L H U/L (38-126) NT-Pro-B Natriuret Pep 6743.8 pg/mL H pg/mL (15.0-450.0) Total Protein 6.9 g/dL g/dL (6.3-8.2) Albumin 3.0 g/dL L g/dL (3.5-5.0) - Radiology Radiology Impressions: HISTORY: 88-year-old female with chest pain COMPARISON: 04/12/2018 TECHNIQUE: Single portable AP view of the chest was performed. FINDINGS: Sternal wires, left chest pacemaker, postoperative changes of the cervical spine, and diffuse prominence of the interstitial markings are all stable. No pneumothorax or new infiltrates. The heart is borderline enlarged. The central pulmonary arteries are ectatic. IMPRESSION: 1. Postoperative changes of the heart without evidence of acute intrathoracic process. 2. Diffuse prominence of the interstitial markings consistent with interstitial pulmonary fibrosis. Electronically signed on Jun 25, 2018 6:49:43 AM CDT by: José Manuel Armas - Orders Orders: ED Orders Category Date Time Status Place IV Lock 1T Care 06/25/18 05:56 Active CHEST 1VIEW [RAD] Stat Exams 06/25/18 Taken BLOOD CULTURE Stat Lab 06/25/18 Ordered CBC REF Stat Lab 06/25/18 Received CMP Routine Lab 06/25/18 Completed MAGNESIUM Stat Lab 06/25/18 Received NT-proBNP Stat Lab 06/25/18 Completed TROPONIN T ([place]) Stat Lab 06/25/18 Received URINALYSIS Routine Lab 06/25/18 Ordered URINE CULTURE Stat Lab 06/25/18 05:58 Ordered Magnesium Sulfate/D5w [Magnesium-D5w 1 gm/100 ml Soln] Med 06/25/18 05:58 Discontinued 1 gm Premix Bag [Premix Fluid] 1 bag IV NOW Magnesium Sulfate/D5w [Magnesium-D5w 1 gm/100 ml Soln] Med 06/25/18 06:56 Discontinued 100 ml IV .STK-MED EKG WITH COMPARISON Stat Ther 06/25/18 Ordered <MIRIAM BLACK - Last Filed: 06/25/18 10:14> Chest Pain Physical Exam - EXAM General Appearance: no acute distress, alert EENT: LIAT Neck: nml inspection Respiratory: no resp. distress, decreased air movement, other (scattered crackles bilaterally L>R) CVS: irregularly irreg. rhythm Abdomen: soft, normal bowel sounds, non-tender Skin: warm/dry, pallor Extremities: no edema Neuro: oriented X3 <Krista Guzman - Last Filed: 06/25/18 07:10> Discharge <Krista Guzman - Last Filed: 06/25/18 07:10> Decision to Admit: [id number] Decision Time: 10:11 <MIRIAM BLACK - Last Filed: 06/25/18 10:14> Clincal Impression: Chronic atrial fibrillation, Elevated troponin level CHF (congestive heart failure) Qualifiers: Heart failure type: unspecified Heart failure chronicity: acute Qualified Code(s): I50.9 - Heart failure, unspecified Referrals: Nikolay Sommers MD [Primary Care Provider] - 2 Days Condition: Good Disposition: 09 ADMITTED INPATIENT
[2018-06-25] MEDS ORDERED: MAGNESIUM SULFATE/D5W 100 ML IV ONE (06:56)
[2018-06-25 08:31] LABS: BASO % 0.6 % (0.0-1.5); EOS % 2.1 % (0.0-6.8); LYMPH ABS # 1.54 thou/uL (0.60-4.00); MCH. 28.9 pg (28.0-34.0); MCV 93.6 fL (80.0-100.0); MONOCYTE % 6.4 % (0.0-11.0); MONOCYTE ABS # 0.74 thou/uL (0.00-0.90); PLATELET COUNT 242 thou/uL (130-400)
[2018-06-25 08:51] LABS: TROPONIN T 0.018 ng/mL (<0.010)
[2018-06-25] MEDS ORDERED: FUROSEMIDE 40 MG/4 ML VIAL IVP ONE (09:42)
[2018-06-25] MEDS ORDERED: POTASSIUM CHLORIDE 20 MEQ TABLET.ER PO ONE (10:12)
--- NOTE | 2018-06-25 13:00 | History and Physical Report ---
History of Present Illnes - History of Present Illness Reason for Visit: dyspnea History of Present Illness: Patient is and 88-year-old white female who stated over the last days he is been having increasing dyspnea shortness of breath. Patient does have a history of atrial fibrillation and congestive heart failure. Patient has developed a slowly productive cough up some clear to white phlegm. Patient denies any increased peel edema. Patient did have some substernal chest pain earlier today. Patient states that she is have the pain for some time and was not any difference in her baseline pain. Patient denies any precipitating of modifying factors that she was aware. Patient denies any diaphoresis. Patient denies any nausea or vomiting. Patient is not had any radiation of pain. Patient subsequently came to the emergency room for evaluation. Chest x-ray did show some cardiomegaly and pulmonary congestion. Patient BNP was elevated above baseline. Patient did have a mildly elevated troponin but has had a history of elevated troponin's in the past and the appeared to be close to baseline. Patient was subsequently admitted to the hospital for further care and evaluation. - Past Medical History Cardiac: AFIB, CAD, CHF, HTN, [place], Hyperlipidemia, Valve insufficiency, Other (PVD) Pulmonary: Other (idiopathic pulmonary fibrosis) [employer]: Dementia Gastrointestinal: GERD Rheumatologic: Other (Raynaud's disease) - Past Surgical History Past Surgical History: CABG, Hysterectomy, Other (Aortic Valve replacement with bovine valve. right carotid enartectomy, reconstructive bladder, ) - Past Family History Mother Family History: CAD (CHF), (90yo) Father Family History: CAD, (in 60s) 8 siblings Family History: CAD son Family History: Cancer, DM daughter Family History: DM - Past Social History Smoke: Quit (many years ago) Alcohol: None Drugs: None Lives: Alone - Health Maintenance Health Maintenance: Influenza Vaccine, Pneumococcal Vaccine Pneumonia Vaccine: Yes Resuscitation Status: Resusciation Status Resuscitation Status Full Code Review of Systems - Review of Systems Constitutional: Weakness, Malaise. negative: Fever, Chills Eyes: negative: pain, vision change, conjunctivae inflammation ENT: negative: Ear Pain, Ear Discharge, Nose Pain, Nose Congestion Respiratory: Shortness of Breath, SOB with Excertion. negative: Cough, Hemoptysis, Pleuritic Pain, Sputum, Wheezing Cardiovascular: negative: Chest Pain, Palpitations, Orthopnea, Paroxysmal Noc. Dyspnea, Light Headedness Gastrointestinal: Constipation. negative: Nausea, Vomiting, Abdominal Pain, Diarrhea, Melena, Hematochezia Genitourinary: Incontinence. negative: Dysuria, Frequency, Hematuria Musculoskeletal: negative: Neck Pain Skin: negative: Rash Neurological: negative: Weakness, Numbness, Incoordination - Medications/Allergies Allergies/Adverse Reactions: Allergies Allergy/AdvReac Type Severity Reaction Status Date / Time warfarin [Warfarin] Allergy Severe Rash Verified 06/25/18 06:43 atenolol Allergy Intermediate Throat Verified 06/25/18 06:43 Swelling Penicillins Allergy Intermediate Rash Verified 06/25/18 06:43 pravastatin Allergy Intermediate Itchy Skin Verified 06/25/18 06:43 levofloxacin Allergy Mild Verified 06/25/18 06:43 pravastatin sodium Allergy Unknown Verified 06/25/18 06:43 [From Pravachol] fluticasone furoate Allergy Verified 06/25/18 06:43 [From Breo Ellipta] vilanterol trifenatate Allergy Verified 06/25/18 06:43 [From Breo Ellipta] iodine AdvReac Tongue Verified 06/25/18 06:43 Swelling anabolic steriods Allergy Unknown Uncoded 06/25/18 06:43 Home Medications: Home Medications Diltiazem HCl [Diltiazem ER] 240 mg PO DAILY 06/25/18 Current Inpatient Medications: Current Inpatient Medications Sodium Chloride (Normal Saline Flush) 3 ml IV BID SERGIO Exam - Exam Vital Signs: Vital Signs (72 hours) 06/25/18 06/25/18 05:55 10:55 Temperature 97.5 F L Pulse Rate [ 93 H 102 H Pulse ox] Respiratory 18 24 Rate Blood Pressure 112/77 110/71 [Left Arm] O2 Sat by Pulse 94 96 Oximetry General: Alert, Oriented to Person, Cooperative, Mild distress. No: Oriented to Place, Oriented to Time HEENT: Atraumatic, PERRLA Neck: Normal Range of Motion. No: Rigidity Carotids: WNL Thyroid: WNL Lungs: Normal air movement, Speaks full Sentences, Rales, Rhonchi Cardiovascular: Normal S1, Normal S2, No murmurs, Irregularly Irregular Abdomen: Normal bowel sounds, Soft, No tenderness, No hepatospenomegaly, No masses Integumentary: Normal, [place], Warm, Dry Extremities: No clubbing, No cyanosis, No edema Neurological: Normal gait, Normal speech, Strength Equal Bilat, Normal tone Psych/Mental Status: Mood NL. No: Mental status NL (confused), Intact Judgment - Laboratory Results Laboratory Results: Laboratory Results 06/25/18 06/25/18 06/25/18 Unknown Unknown Unknown WBC Comment 11.64 RBC 4.08 Hemoglobin (Send Out) 11.8 Hct (Send Out) 38.2 MCV (Send Out) 93.6 MCH 28.9 MCHC (Send Out) 30.9 RDW Coeff of Jay 13.7 Plt Count 242 Absolute Lymphs (auto) 1.54 Absolute Monos (auto) 0.74 Absolute Basos (auto) 0.07 Neutrophils % 77.6 Absolute Neutrophils 9.03 H Lymphocytes 13.2 L Monocytes 6.4 Absolute Eosinophils 0.24 Basophilia % 0.6 Eosinophil Count 2.1 Sodium 135 L Potassium 4.0 Chloride 104 Carbon Dioxide 23 BUN 21 H Creatinine 1.80 H Estimated Creat Clear 22 Est GFR ( Amer) 34 L Est GFR (Non-Af Amer) 28 L Glucose 93 Calcium 8.6 Magnesium Total Bilirubin 0.6 AST 94 H ALT 65 Alkaline Phosphatase 282 H Troponin T NT-Pro-B Natriuret Pep 6743.8 H Total Protein 6.9 Albumin 3.0 L 06/25/18 06/25/18 Unknown Unknown WBC Comment RBC Hemoglobin (Send Out) Hct (Send Out) MCV (Send Out) MCH MCHC (Send Out) RDW Coeff of Jay Plt Count Absolute Lymphs (auto) Absolute Monos (auto) Absolute Basos (auto) Neutrophils % Absolute Neutrophils Lymphocytes Monocytes Absolute Eosinophils Basophilia % Eosinophil Count Sodium Potassium Chloride Carbon Dioxide BUN Creatinine Estimated Creat Clear Est GFR ( Amer) Est GFR (Non-Af Amer) Glucose Calcium Magnesium 2.3 Total Bilirubin AST ALT Alkaline Phosphatase Troponin T 0.018 H NT-Pro-B Natriuret Pep Total Protein Albumin Assessment/Plan - Assessment/Plan (1) CHF (congestive heart failure) Status: Acute Current Visit: Yes Qualifiers: Heart failure type: combined systolic and diastolic Heart failure chronicity: acute on chronic Qualified Code(s): I50.43 - Acute on chronic combined systolic (congestive) and diastolic (congestive) heart failure (2) Chronic atrial fibrillation Status: Acute Current Visit: Yes (3) Elevated troponin level Status: Acute Current Visit: Yes Assessment: Patient will be continued on anticoagulation therapy and home medications. (4) HTN (hypertension) Status: Chronic Current Visit: No Qualifiers: Hypertension type: essential hypertension Qualified Code(s): I10 - Essential (primary) hypertension Assessment: Patient will be continued on home medications. (5) Pulmonary fibrosis Status: Acute Current Visit: Yes Plan: Patient will be continued on home medications. VTE Assessment - RISK FACTOR SCORE VTE RISK FACTOR SCORES: AGE OVER 60 YEARS, CONGESTIVE HEART FAILURE OR MYOCARDIAL INFARCTION - RISK VTE HIGH RISK: SCORE OF 3-4 (RISK PROXIMAL DVT 4-8%) PROPHYLAXIS NEEDED (patient is on anticoagulation therapy)
[2018-06-25 15:21] LABS: TROPONIN T <0.010 ng/mL (<0.010)
[2018-06-25 15:59] VITALS: BMI 19.7
--- NOTE | 2018-06-25 18:09 | Diagnostic Imaging Report ---
DELMA GOMEZ [facility] [address] [facility] [address] [place] [address]. [id number] Report Submission Date: Jun 25, 2018 6:49:43 AM CDT Patient Study Name: LUZ MARIA BALES Date: Jun 25, 2018 6:28:30 AM CDT Modality Type: DX Gender: F Description: CHEST : 28 Institution: [facility] Physician: DELMA GOMEZ HISTORY: 88-year-old female with chest pain COMPARISON: 04/12/2018 TECHNIQUE: Single portable AP view of the chest was performed. FINDINGS: Sternal wires, left chest pacemaker, postoperative changes of the cervical spine, and diffuse prominence of the interstitial markings are all stable. No pneumothorax or new infiltrates. The heart is borderline enlarged. The central pulmonary arteries are ectatic. IMPRESSION: 1. Postoperative changes of the heart without evidence of acute intrathoracic process. 2. Diffuse prominence of the interstitial markings consistent with interstitial pulmonary fibrosis. Electronically signed on Jun 25, 2018 6:49:43 AM CDT by: José Manuel JOSEPH
[2018-06-25] MEDS: DILTIAZEM HCL 180 MG CAP.ER.24H PO SCH (21:51)
[2018-06-25] MEDS: MONTELUKAST SODIUM 10 MG TABLET PO SCH (21:52)
[2018-06-25] MEDS: APIXABAN 2.5 MG TABLET PO SCH (21:52)
[2018-06-25] MEDS: SIMVASTATIN 20 MG TABLET PO SCH (21:53)
[2018-06-25] MEDS: FUROSEMIDE 20 MG/2 ML VIAL IVP SCH (22:21)
[2018-06-25] MEDS: SALINE FLUSH 10 ML DISP.SYRIN IV SCH (22:22)
[2018-06-25] MEDS ORDERED: DILTIAZEM HCL 120 MG CAP.ER.24H PO ONE (23:28)
[2018-06-25] MEDS ORDERED: DILTIAZEM HCL 120 MG CAP.ER.24H ONE (23:35)
[2018-06-26] MEDS: FUROSEMIDE 20 MG/2 ML VIAL IVP SCH ×2 (06:45→14:51)
[2018-06-26] MEDS: APIXABAN 2.5 MG TABLET PO SCH ×2 (10:26→21:01)
[2018-06-26] MEDS: DILTIAZEM HCL 180 MG CAP.ER.24H PO SCH (10:27)
[2018-06-26] MEDS: SALINE FLUSH 10 ML DISP.SYRIN IV SCH ×2 (10:27→21:05)
[2018-06-26 13:33] LABS: APPEARANCE,URINE CLEAR (CLEAR); COLOR,URINE AMBER (YELLOW); OCCULT BLOOD,URINE TRACE-LYSED (NEGATIVE); PH URINE 5.5 (5.0 - 8.0); UROBILINOGEN URINE 0.2 Eu (0.2-1.0)
[2018-06-26 17:41] LABS: TROPONIN T 0.017 ng/mL (<0.010)
[2018-06-26] MEDS ORDERED: ONDANSETRON HCL 4 MG TAB.RAPDIS PO PRN (20:39)
[2018-06-26] MEDS ORDERED: ONDANSETRON HCL/PF 4 MG/ 2ML VIAL ONE (20:50)
[2018-06-26] MEDS: SIMVASTATIN 20 MG TABLET PO SCH (21:01)
[2018-06-26] MEDS: MONTELUKAST SODIUM 10 MG TABLET PO SCH (21:01)
[2018-06-26] MEDS: MELATONIN 3 MG TABLET PO SCH (21:01)
[2018-06-26] MEDS: MAG HYDROX/ALUMINUM HYD/SIMETH 30 ML UDC PO PRN (21:02)
[2018-06-26] MEDS ORDERED: DILTIAZEM HCL 120 MG CAP.ER.24H PO ONE (23:28)
[2018-06-27] MEDS: FUROSEMIDE 20 MG/2 ML VIAL IVP SCH ×2 (06:06→13:56)
[2018-06-27] MEDS: APIXABAN 2.5 MG TABLET PO SCH ×2 (09:04→21:00)
[2018-06-27] MEDS: DILTIAZEM HCL 180 MG CAP.ER.24H PO SCH (09:04)
[2018-06-27] MEDS: SALINE FLUSH 10 ML DISP.SYRIN IV SCH ×2 (09:05→20:59)
--- NOTE | 2018-06-27 11:05 | Inpatient Progress Note ---
Subjective - Required Recertification Statement I anticipate X number of days because-include discharge plan: 1 day - Review of Systems Events since last encounter: Patient seemed to be doing better today. Patient is complaining of left shortness of breath dyspnea. Patient denies any chest pain. Patient has been seen by physical and occupational therapy was felt that she would benefit from some skilled therapy. I have talked with the family members and they don't feel that she is adequately able to care for herself at home by herself. General: Denies: Chills HEENT: Denies: Head Aches Pulmonary: Dyspnea, Cough. Denies: Pleuritic Chest Pain Cardiovascular: Denies: Chest Pain, Palpitations Gastrointestinal: Denies: Nausea, Vomiting, Abdominal Pain Objective - Exam Vitals and I&O: Vital Signs Temp 97.2 F L 06/27/18 06:00 Pulse 62 06/27/18 06:00 Resp 20 06/27/18 06:00 BP 89/40 06/27/18 06:00 Pulse Ox 98 06/27/18 06:00 Intake & Output 06/26/18 06/26/18 06/27/18 11:59 23:59 11:59 Intake Total 150 580 180 Balance 150 580 180 Weight 48.394 kg 48.394 kg Intake: IV 30 20 Left Antecubital 30 20 Oral 120 560 180 Other: Voiding Method Toilet Toilet # Voids 6 2 1 General: Alert, Oriented to Person, Mild distress. No: Oriented to Place, Oriented to Time Neck: Supple Lungs: Rales, Rhonchi (few scattered bilat). No: Normal air movement, Speaks full Sentences Cardiovascular: Irregularly Irregular Abdomen: Normal bowel sounds, Soft, No tenderness - Results Results: Laboratory Results WBC Comment 11.64 thou/uL (4.00-12.00) 06/25/18 Unknown RBC 4.08 mil/uL (3.90-5.20) 06/25/18 Unknown Hemoglobin (Send Out) 11.8 g/dL (11.5-16.0) 06/25/18 Unknown Hct (Send Out) 38.2 % (34.5-46.5) 06/25/18 Unknown MCV (Send Out) 93.6 fL (80.0-100.0) 06/25/18 Unknown MCH 28.9 pg (28.0-34.0) 06/25/18 Unknown MCHC (Send Out) 30.9 g/dL (30.0-36.0) 06/25/18 Unknown RDW Coeff of Jay 13.7 % (11.3-14.7) 06/25/18 Unknown Plt Count 242 thou/uL (130-400) 06/25/18 Unknown Absolute Lymphs (auto) 1.54 thou/uL (0.60-4.00) 06/25/18 Unknown Absolute Monos (auto) 0.74 thou/uL (0.00-0.90) 06/25/18 Unknown Absolute Basos (auto) 0.07 thou/uL (0.00-0.50) 06/25/18 Unknown Neutrophils % 77.6 % (39.0-79.0) 06/25/18 Unknown Absolute Neutrophils 9.03 thou/uL (1.50-7.70) H 06/25/18 Unknown Lymphocytes 13.2 % (16.0-50.0) L 06/25/18 Unknown Monocytes 6.4 % (0.0-11.0) 06/25/18 Unknown Absolute Eosinophils 0.24 thou/uL (0.00-0.60) 06/25/18 Unknown Basophilia % 0.6 % (0.0-1.5) 06/25/18 Unknown Eosinophil Count 2.1 % (0.0-6.8) 06/25/18 Unknown Sodium 133 mmol/L (136-145) L 06/26/18 Unknown Potassium 4.1 mmol/L (3.5-5.1) 06/26/18 Unknown Chloride 101 mmol/L (98-107) 06/26/18 Unknown Carbon Dioxide 25 mmol/L (22-30) 06/26/18 Unknown BUN 27 mg/dL (7-17) H 06/26/18 Unknown Creatinine 1.90 mg/dL (0.52-1.04) H 06/26/18 Unknown Estimated Creat Clear 18 06/26/18 Unknown Est GFR ( Amer) 32 (60-) L 06/26/18 Unknown Est GFR (Non-Af Amer) 26 (60-) L 06/26/18 Unknown Glucose 106 mg/dL (74-106) 06/26/18 Unknown Calcium 8.2 mg/dL (8.4-10.2) L 06/26/18 Unknown Magnesium 2.3 mg/dL (1.6-2.6) 06/25/18 Unknown Total Bilirubin 0.5 mg/dL (0.2-1.3) 06/26/18 06:35 AST 113 U/L (15-46) H 06/26/18 06:35 ALT 79 U/L (13-69) H 06/26/18 06:35 Alkaline Phosphatase 323 U/L (38-126) H 06/26/18 06:35 Troponin T 0.017 ng/mL (<0.010) H 06/26/18 06:35 NT-Pro-B Natriuret Pep 6743.8 pg/mL (15.0-450.0) H 06/25/18 Unknown Total Protein 6.9 g/dL (6.3-8.2) 06/26/18 06:35 Albumin 3.1 g/dL (3.5-5.0) L 06/26/18 06:35 Urine Color Sherrell (YELLOW) 06/25/18 08:55 Urine Appearance Clear (CLEAR) 06/25/18 08:55 Urine pH 5.5 (5.0 - 8.0) 06/25/18 08:55 Ur Specific [place] >=1.030 (1.010-1.030) H 06/25/18 08:55 Urine Protein 2+ mg/dL (NEGATIVE) H 06/25/18 08:55 Urine Ketones Negative mg/dL (NEGATIVE) 06/25/18 08:55 Urine Occult Blood Trace-lysed (NEGATIVE) H 06/25/18 08:55 Urine Nitrite Positive (NEGATIVE) H 06/25/18 08:55 Urine Bilirubin Negative (NEGATIVE) 06/25/18 08:55 Urine Urobilinogen 0.2 Eu (0.2-1.0) 06/25/18 08:55 Ur Leukocyte Esterase Negative (NEGATIVE) 06/25/18 08:55 Urine Glucose Negative mg/dL (NEGATIVE) 06/25/18 08:55 Assessment/Plan - Assessment/Plan (1) CHF (congestive heart failure) Status: Acute Current Visit: Yes Qualifiers: Heart failure type: combined systolic and diastolic Heart failure chronicity: acute on chronic Qualified Code(s): I50.43 - Acute on chronic combined systolic (congestive) and diastolic (congestive) heart failure Assessment: improved (2) Pulmonary fibrosis Status: Chronic Current Visit: Yes Assessment: stable (3) Chronic atrial fibrillation Status: Chronic Current Visit: Yes Assessment: stable (4) Elevated troponin level Status: Chronic Current Visit: Yes Assessment: stable (5) HTN (hypertension) Status: Chronic Current Visit: No Qualifiers: Hypertension type: essential hypertension Qualified Code(s): I10 - Essential (primary) hypertension
--- NOTE | 2018-06-27 11:06 | Inpatient Progress Note ---
Subjective - Required Recertification Statement I anticipate X number of days because-include discharge plan: 2 days - Review of Systems Events since last encounter: Patient states she is been feeling some better today. Patient continues to have a slightly cough that is been productive. Patient remained confused related to her dementia. Cardiovascular: Denies: Chest Pain Gastrointestinal: Constipation. Denies: Nausea, Vomiting, Abdominal Pain Musculoskeletal: Denies: Neck Pain Neurological: Denies: Weakness, Numbness Objective - Exam Vitals and I&O: Vital Signs Temp 97.2 F L 06/27/18 06:00 Pulse 62 06/27/18 06:00 Resp 20 06/27/18 06:00 BP 89/40 06/27/18 06:00 Pulse Ox 98 06/27/18 06:00 Intake & Output 06/26/18 06/26/18 06/27/18 11:59 23:59 11:59 Intake Total 150 580 180 Balance 150 580 180 Weight 48.394 kg 48.394 kg Intake: IV 30 20 Left Antecubital 30 20 Oral 120 560 180 Other: Voiding Method Toilet Toilet # Voids 6 2 1 General: Alert, Oriented to Person, Oriented to Place, Cooperative, Mild distress. No: Oriented to Time Lungs: Normal air movement, Speaks full Sentences, Rales (scattered), Rhonchi (few scttered bilt) Cardiovascular: Irregularly Irregular Abdomen: Normal bowel sounds, Soft, No tenderness Skin: Normal, [place], Warm, Dry Neurological: Normal speech. No: Normal gait (slightly ataxic) Psych/Mental Status: Mental status NL, Mood NL, Appropriate Affect. No: Intact Judgment - Results Results: Laboratory Results WBC Comment 11.64 thou/uL (4.00-12.00) 06/25/18 Unknown RBC 4.08 mil/uL (3.90-5.20) 06/25/18 Unknown Hemoglobin (Send Out) 11.8 g/dL (11.5-16.0) 06/25/18 Unknown Hct (Send Out) 38.2 % (34.5-46.5) 06/25/18 Unknown MCV (Send Out) 93.6 fL (80.0-100.0) 06/25/18 Unknown MCH 28.9 pg (28.0-34.0) 06/25/18 Unknown MCHC (Send Out) 30.9 g/dL (30.0-36.0) 06/25/18 Unknown RDW Coeff of Jay 13.7 % (11.3-14.7) 06/25/18 Unknown Plt Count 242 thou/uL (130-400) 06/25/18 Unknown Absolute Lymphs (auto) 1.54 thou/uL (0.60-4.00) 06/25/18 Unknown Absolute Monos (auto) 0.74 thou/uL (0.00-0.90) 06/25/18 Unknown Absolute Basos (auto) 0.07 thou/uL (0.00-0.50) 06/25/18 Unknown Neutrophils % 77.6 % (39.0-79.0) 06/25/18 Unknown Absolute Neutrophils 9.03 thou/uL (1.50-7.70) H 06/25/18 Unknown Lymphocytes 13.2 % (16.0-50.0) L 06/25/18 Unknown Monocytes 6.4 % (0.0-11.0) 06/25/18 Unknown Absolute Eosinophils 0.24 thou/uL (0.00-0.60) 06/25/18 Unknown Basophilia % 0.6 % (0.0-1.5) 06/25/18 Unknown Eosinophil Count 2.1 % (0.0-6.8) 06/25/18 Unknown Sodium 133 mmol/L (136-145) L 06/26/18 Unknown Potassium 4.1 mmol/L (3.5-5.1) 06/26/18 Unknown Chloride 101 mmol/L (98-107) 06/26/18 Unknown Carbon Dioxide 25 mmol/L (22-30) 06/26/18 Unknown BUN 27 mg/dL (7-17) H 06/26/18 Unknown Creatinine 1.90 mg/dL (0.52-1.04) H 06/26/18 Unknown Estimated Creat Clear 18 06/26/18 Unknown Est GFR ( Amer) 32 (60-) L 06/26/18 Unknown Est GFR (Non-Af Amer) 26 (60-) L 06/26/18 Unknown Glucose 106 mg/dL (74-106) 06/26/18 Unknown Calcium 8.2 mg/dL (8.4-10.2) L 06/26/18 Unknown Magnesium 2.3 mg/dL (1.6-2.6) 06/25/18 Unknown Total Bilirubin 0.5 mg/dL (0.2-1.3) 06/26/18 06:35 AST 113 U/L (15-46) H 06/26/18 06:35 ALT 79 U/L (13-69) H 06/26/18 06:35 Alkaline Phosphatase 323 U/L (38-126) H 06/26/18 06:35 Troponin T 0.017 ng/mL (<0.010) H 06/26/18 06:35 NT-Pro-B Natriuret Pep 6743.8 pg/mL (15.0-450.0) H 06/25/18 Unknown Total Protein 6.9 g/dL (6.3-8.2) 06/26/18 06:35 Albumin 3.1 g/dL (3.5-5.0) L 06/26/18 06:35 Urine Color Sherrell (YELLOW) 06/25/18 08:55 Urine Appearance Clear (CLEAR) 06/25/18 08:55 Urine pH 5.5 (5.0 - 8.0) 06/25/18 08:55 Ur Specific [place] >=1.030 (1.010-1.030) H 06/25/18 08:55 Urine Protein 2+ mg/dL (NEGATIVE) H 06/25/18 08:55 Urine Ketones Negative mg/dL (NEGATIVE) 06/25/18 08:55 Urine Occult Blood Trace-lysed (NEGATIVE) H 06/25/18 08:55 Urine Nitrite Positive (NEGATIVE) H 06/25/18 08:55 Urine Bilirubin Negative (NEGATIVE) 06/25/18 08:55 Urine Urobilinogen 0.2 Eu (0.2-1.0) 06/25/18 08:55 Ur Leukocyte Esterase Negative (NEGATIVE) 06/25/18 08:55 Urine Glucose Negative mg/dL (NEGATIVE) 06/25/18 08:55 Assessment/Plan - Assessment/Plan (1) CHF (congestive heart failure) Status: Acute Current Visit: Yes Qualifiers: Heart failure type: combined systolic and diastolic Heart failure chronicity: acute on chronic Qualified Code(s): I50.43 - Acute on chronic combined systolic (congestive) and diastolic (congestive) heart failure Assessment: improved (2) Chronic atrial fibrillation Status: Chronic Current Visit: Yes Assessment: Stable with no tachycardia bradycardia noted. (3) Elevated troponin level Status: Chronic Current Visit: Yes Assessment: This appeared to be chronic in stable (4) HTN (hypertension) Status: Chronic Current Visit: No Qualifiers: Hypertension type: essential hypertension Qualified Code(s): I10 - Essential (primary) hypertension Assessment: Stable (5) Pulmonary fibrosis Status: Chronic Current Visit: Yes Assessment: I believe this is what is contributing to a lot of the patient shortness of breath dyspnea at this time.
--- NOTE | 2018-06-27 20:18 | Diagnostic Imaging Report ---
ERIN MARS [facility] [address] [address] Report Submission Date: Jun 27, 2018 10:25:55 AM CDT Patient Study Name: LUZ MARIA BALES Date: Jun 27, 2018 9:39:25 AM CDT Modality Type: DX Gender: F Description: CHEST : 28 Institution: [facility] Physician: ERIN MARS PA and lateral chest History: Short of breath . PA and lateral chest dated June 27, 2018 compared with June 25 and April 12, 2018 Diffuse, unchanged interstitial markings are present within the lungs bilaterally consistent with extensive and unchanged pulmonary fibrosis. Heart size is unchanged. Postoperative findings are present and unchanged. There is an unchanged dual lead pacing device. There is no pleural effusion. There is no new focus of infiltrate. Impression: No change back to April 12, 2018. Unchanged diffuse pulmonary fibrosis. Electronically signed on Jun 27, 2018 10:25:55 AM CDT by: Maria E JOSEPH
[2018-06-27] MEDS: MELATONIN 3 MG TABLET PO SCH (21:00)
[2018-06-27] MEDS: SIMVASTATIN 20 MG TABLET PO SCH (21:00)
[2018-06-27] MEDS: MONTELUKAST SODIUM 10 MG TABLET PO SCH (21:00)
[2018-06-27] MEDS: DORZOLAMINE HCL/TIMOLOL MALEAT OPTH DROP OP SCH (21:01)
[2018-06-27] MEDS: MAG HYDROX/ALUMINUM HYD/SIMETH 30 ML UDC PO PRN (21:01)
[2018-06-27] MEDS ORDERED: ACETAMINOPHEN 500 MG TABLET PO PRN (21:14)
[2018-06-28] MEDS ORDERED: ACETAMINOPHEN 500 MG TABLET ONE (01:38)
[2018-06-28] MEDS: FUROSEMIDE 20 MG/2 ML VIAL IVP SCH (05:38)
[2018-06-28] MEDS: APIXABAN 2.5 MG TABLET PO SCH (08:30)
[2018-06-28] MEDS: DILTIAZEM HCL 180 MG CAP.ER.24H PO SCH (08:30)
[2018-06-28] MEDS: SALINE FLUSH 10 ML DISP.SYRIN IV SCH (08:33)
[2018-06-28] MEDS: DORZOLAMINE HCL/TIMOLOL MALEAT OPTH DROP OP SCH ×2 (08:33→10:52)
[2018-06-28] MEDS ORDERED: TIMOLOL MALEATE 0.5% OPTH OP ONE (10:51)
[2018-06-28 11:02] VITALS: BP 87/34
--- NOTE | 2018-07-08 21:43 | Discharge Summary ---
Discharge Summary - Discharge Sumary History of Present Illness: Patient is and 88-year-old white female who stated over the last days he is been having increasing dyspnea shortness of breath. Patient does have a history of atrial fibrillation and congestive heart failure. Patient has developed a slowly productive cough up some clear to white phlegm. Patient denies any increased peel edema. Patient did have some substernal chest pain earlier today. Patient states that she is have the pain for some time and was not any difference in her baseline pain. Patient denies any precipitating of modifying factors that she was aware. Patient denies any diaphoresis. Patient denies any nausea or vomiting. Patient is not had any radiation of pain. Patient subsequently came to the emergency room for evaluation. Chest x-ray did show some cardiomegaly and pulmonary congestion. Patient BNP was elevated above baseline. Patient did have a mildly elevated troponin but has had a history of elevated troponin's in the past and the appeared to be close to baseline. Patient was subsequently admitted to the hospital for further care and evaluation. Condition at Discharge: Stable Home Medications: Ambulatory Orders Medication Instructions Recorded Montelukast Sodium [Singulair] 10 mg PO HS 11/01/16 Diltiazem HCl [Diltiazem ER] 240 mg PO DAILY 06/25/18 Acetaminophen [Tylenol Extra 500 mg PO Q4H PRN tablet 06/28/18 Strength] Dorzolamide HCl/Timolol Maleat 1 drop OP BID bottle 06/28/18 [Cosopt Eye Drops] Furosemide [Lasix] 20 mg IJ DAILY #30 vial 06/28/18 Consultations this Visit: None Procedures this Visit: None Allergies/Adverse Reactions: Allergies Allergy/AdvReac Type Severity Reaction Status Date / Time warfarin [Warfarin] Allergy Severe Rash Verified 07/03/18 15:28 atenolol Allergy Intermediate Throat Verified 07/03/18 15:28 Swelling Penicillins Allergy Intermediate Rash Verified 07/03/18 15:28 pravastatin Allergy Intermediate Itchy Skin Verified 07/03/18 15:28 levofloxacin Allergy Mild Verified 07/03/18 15:28 codeine Allergy Unknown Verified 07/03/18 15:28 niacin Allergy Unknown Verified 07/03/18 15:28 pravastatin sodium Allergy Unknown Verified 07/03/18 15:28 [From Pravachol] Sulfa (Sulfonamide Allergy Unknown Verified 07/03/18 15:28 Antibiotics) erythromycin base Allergy Verified 07/03/18 15:28 fluticasone furoate Allergy Verified 07/03/18 15:28 [From Breo Ellipta] Neuromuscular Blockers, Allergy Verified 07/03/18 15:28 Steroidal vilanterol trifenatate Allergy Verified 07/03/18 15:28 [From Breo Ellipta] atorvastatin calcium AdvReac Unknown unknown Verified 07/03/18 15:28 tramadol AdvReac Unknown unknown Verified 07/03/18 15:28 Coumarin Analogues AdvReac unknown Verified 07/03/18 15:28 iodine AdvReac Tongue Verified 07/03/18 15:28 Swelling anabolic steriods Allergy Unknown Uncoded 06/25/18 06:43 Discharge Summary: Patient was started on IV Lasix therapy. Patient BUN and creatinine were carefully monitored because of her chronic kidney disease. They did remain stable. Patient breathing did improve moderately during her hospital stay. Patient does have a history of pulmonary fibrosis and was felt that this was contributing some to her shortness of breath dyspnea. Patient did have an elevated troponin however this remain stable at baseline for her. Patient denied any chest pain or chest pressure. Patient did remain confused. At the time of dismissal patient was weak and pottery with her ambulation. It was felt that she would benefit from some skilled services. Patient was subsequently transferred to [facility].
== END 2018-06-28 11:25 | DRG 198 ==
LOC: ED 05:51 → SOUTH 10:40
PROVIDERS: ADMIT Family Medicine; ATTEND Family Medicine
DX: J84.10 Pulmonary fibrosis, unspecified (principal); I50.9 Heart failure, unspecified; I48.91 Unspecified atrial fibrillation; Z79.01 Long term (current) use of anticoagulants
CPT/HCPCS: 71045; 71046; 80048; 80053; 81002; 83735; 83880; 84484; 85025; 87040; 87086; 87186; 96365; 96375; 99222; 99232; 99238; J1940; J2405; A9270; J3475; S1016

== ENCOUNTER 2018-06-28 11:30 | Inpatient (IN) | payer MEDICARE, OTHER ==
[2018-06-28] MEDS ORDERED: LORATADINE 10 MG TABLET PO PRN (12:15)
[2018-06-28] MEDS ORDERED: BENAZEPRIL HCL 10 MG TABLET PO SCH (13:00)
[2018-06-28 13:18] VITALS: BMI 20.1
[2018-06-28] MEDS: ACETAMINOPHEN 325 MG TABLET PO PRN ×2 (15:19→23:37)
[2018-06-28] MEDS: FUROSEMIDE 40 MG TABLET PO SCH (15:39)
[2018-06-28] MEDS: CALCIUM CARB 500 MG TAB.CHEW PO SCH (20:34)
[2018-06-28] MEDS: MONTELUKAST SODIUM 10 MG TABLET PO SCH (20:34)
[2018-06-28] MEDS: SIMVASTATIN 20 MG TABLET PO SCH (20:34)
[2018-06-28] MEDS: MELATONIN 3 MG TABLET PO SCH (20:34)
[2018-06-28] MEDS: APIXABAN 2.5 MG TABLET PO SCH (20:35)
[2018-06-28] MEDS: DORZOLAMINE HCL/TIMOLOL MALEAT OPTH DROP OP SCH (20:35)
[2018-06-28] MEDS: PANTOPRAZOLE SODIUM 40 MG TABLET PO SCH (22:35)
[2018-06-28] MEDS: MAG HYDROX/ALUMINUM HYD/SIMETH 30 ML UDC PO PRN (22:35)
[2018-06-29] MEDS: FUROSEMIDE 40 MG TABLET PO SCH ×2 (06:04→14:10)
[2018-06-29 07:38] LABS: MEAN CORPUSCULAR HEMOGLOBIN 29.4 pg (28.0-34.0)
[2018-06-29 07:39] LABS: BASOPHILS % 0.5 (0.0-1.5); EOSINOPHILS % 3.7 % (0.0-6.8); NEUTROPHILS # 9.9 # k/uL (1.4-7.7)
[2018-06-29] MEDS: CHOLECALCIFEROL (VIT D3) 1,000 UNIT TABLET PO SCH (09:08)
[2018-06-29] MEDS: APIXABAN 2.5 MG TABLET PO SCH ×2 (09:08→21:35)
[2018-06-29] MEDS: CALCIUM CARB 500 MG TAB.CHEW PO SCH ×2 (09:08→21:35)
[2018-06-29] MEDS: DORZOLAMINE HCL/TIMOLOL MALEAT OPTH DROP OP SCH ×2 (09:09→21:34)
[2018-06-29] MEDS: DILTIAZEM HCL 180 MG CAP.ER.24H PO SCH (09:09)
[2018-06-29] MEDS: MELATONIN 3 MG TABLET PO SCH (21:35)
[2018-06-29] MEDS: SIMVASTATIN 20 MG TABLET PO SCH (21:35)
[2018-06-29] MEDS: MONTELUKAST SODIUM 10 MG TABLET PO SCH (21:35)
[2018-06-30] MEDS: ONDANSETRON HCL 4 MG TAB.RAPDIS PO PRN ×2 (00:06→14:39)
[2018-06-30] MEDS: ACETAMINOPHEN 325 MG TABLET PO PRN ×2 (03:37→22:26)
[2018-06-30] MEDS: FUROSEMIDE 40 MG TABLET PO SCH ×2 (06:13→13:48)
[2018-06-30] MEDS: PANTOPRAZOLE SODIUM 40 MG TABLET PO SCH (06:13)
--- NOTE | 2018-06-30 08:25 | Diagnostic Imaging Report ---
DEVIN NAVA [facility] [address] [facility] [address] [address] Report Submission Date: Jun 30, 2018 7:23:21 AM CDT Patient Study Name: LUZ MARIA BALES Date: Jun 30, 2018 6:46:01 AM CDT Modality Type: DX Gender: F Description: CHEST : 28 Institution: [facility] Physician: DEVIN NAVA Examination: PA and lateral chest. History: Evaluate lung goss. COUGH, CHF, LEUKOCYTOSIS (Hx) Comparison exam: [id number] Findings: PA and lateral views of the chest demonstrates a prominent cardiac and mediastinal silhouette. Sternotomy wires. Vascular calcifications involving the aortic arch. Elevated right hemidiaphragm. Continued chronic interstitial changes. No blunting of the costophrenic margins. Left-sided cardiac pacemaker. Osseous structures are appropriate for age. Impression: Chronic interstitial changes suggesting pulmonary fibrosis. No definite acute appearing focal consolidation or effusion Electronically signed on Jun 30, 2018 7:23:21 AM CDT by: Lei JOSEPH
[2018-06-30] MEDS: CHOLECALCIFEROL (VIT D3) 1,000 UNIT TABLET PO SCH (09:28)
[2018-06-30] MEDS: DORZOLAMINE HCL/TIMOLOL MALEAT OPTH DROP OP SCH ×2 (09:29→20:51)
[2018-06-30] MEDS: DILTIAZEM HCL 180 MG CAP.ER.24H PO SCH (09:29)
[2018-06-30] MEDS: CALCIUM CARB 500 MG TAB.CHEW PO SCH ×2 (09:29→20:51)
[2018-06-30] MEDS: APIXABAN 2.5 MG TABLET PO SCH ×2 (09:29→20:51)
[2018-06-30 09:32] LABS: MEAN CORPUSCULAR HEMOGLOBIN 29.7 pg (28.0-34.0)
[2018-06-30 09:33] LABS: BASOPHILS % 0.4 (0.0-1.5); MONOCYTES % 8.7 % (0.0-11.0)
[2018-06-30] MEDS: MELATONIN 3 MG TABLET PO SCH (20:52)
[2018-06-30] MEDS: SIMVASTATIN 20 MG TABLET PO SCH (20:52)
[2018-06-30] MEDS: MONTELUKAST SODIUM 10 MG TABLET PO SCH (20:52)
[2018-06-30] MEDS: MAG HYDROX/ALUMINUM HYD/SIMETH 30 ML UDC PO PRN (23:10)
[2018-07-01] MEDS: FUROSEMIDE 40 MG TABLET PO SCH ×2 (06:10→15:31)
[2018-07-01] MEDS: PANTOPRAZOLE SODIUM 40 MG TABLET PO SCH (06:10)
[2018-07-01] MEDS: DORZOLAMINE HCL/TIMOLOL MALEAT OPTH DROP OP SCH ×2 (08:48→21:39)
[2018-07-01] MEDS: APIXABAN 2.5 MG TABLET PO SCH ×2 (08:55→21:40)
[2018-07-01] MEDS: CHOLECALCIFEROL (VIT D3) 1,000 UNIT TABLET PO SCH (08:55)
[2018-07-01] MEDS: CALCIUM CARB 500 MG TAB.CHEW PO SCH ×2 (08:55→21:40)
[2018-07-01] MEDS: DILTIAZEM HCL 180 MG CAP.ER.24H PO SCH (08:55)
--- NOTE | 2018-07-01 14:21 | Inpatient Progress Note ---
Subjective - Required Recertification Statement I anticipate X number of days because-include discharge plan: 10 - Review of Systems Events since last encounter: Delilah is doing well today. She is very tired after therapy. She was a little depressed this morning and asked her family about hospice, but she is not speaking about this currently. She says that her breathing is doing fairly well currently. She does feel a little cold. General: Fatigue, Malaise. Denies: Chills, Night Sweats HEENT: Denies: Head Aches, Visual Changes Pulmonary: Dyspnea Cardiovascular: Denies: Chest Pain, Palpitations Gastrointestinal: Denies: Nausea, Vomiting Genitourinary: Denies: Dysuria, Frequency Musculoskeletal: Denies: Neck Pain Neurological: Weakness, Confusion (at baseline) Objective - Exam Vitals and I&O: Vital Signs Temp 97.4 F L 07/01/18 09:00 Pulse 105 H 07/01/18 09:00 Resp 18 07/01/18 09:00 BP 102/45 07/01/18 09:00 Pulse Ox 95 07/01/18 09:00 Intake & Output 06/30/18 07/01/18 07/01/18 23:59 11:59 23:59 Intake Total 760 540 240 Balance 760 540 240 Intake: Oral 760 140 240 Tube Feeding 400 Other: Voiding Method Toilet Toilet # Voids 2 4 # Bowel Movements 3 General: Oriented to Person, Oriented to Place HEENT: Atraumatic, PERRLA Neck: Supple, No JVD Lungs: Prolonged Expiration, Decreased Air Movement. No: Respiratory Distress Cardiovascular: Atrial Fib Abdomen: Normal bowel sounds, Soft, No tenderness Extremities: No clubbing, No cyanosis, No edema Skin: Normal, [employer], Warm, Dry Neurological: Normal speech Psych/Mental Status: Other (some mild confusion) - Results Results: Laboratory Results WBC 12.10 K/ul (4.00-12.00) H 06/30/18 06:00 RBC 3.74 M/ul (3.90-5.20) L 06/30/18 06:00 Hgb 11.1 g/dL (12.0-16.0) L 06/30/18 06:00 Hct 33.8 % (34.5-46.5) L 06/30/18 06:00 MCV 90.0 fl (80.0-100.0) 10/15/18 06:00 MCH 29.7 pg (28.0-34.0) 06/30/18 06:00 MCHC 32.9 g/dL (30.0-36.0) 06/30/18 06:00 RDW 13.0 % (11.3-14.3) 06/30/18 06:00 Plt Count 167 K/mm3 (130-400) 06/30/18 06:00 Neut % (Auto) 74.4 % (39.0-79.0) 06/30/18 06:00 Lymph % (Auto) 13.5 % (16.0-50.0) L 06/30/18 06:00 Rich % (Auto) 8.7 % (0.0-11.0) 06/30/18 06:00 Eos % (Auto) 3.0 % (0.0-6.8) 06/30/18 06:00 Baso % (Auto) 0.4 (0.0-1.5) 06/30/18 06:00 Neut # (Auto) 9.0 # k/uL (1.4-7.7) H 06/30/18 06:00 Lymph # (Auto) 1.6 # k/uL (0.6-4.0) 06/30/18 06:00 Rich # (Auto) 1.1 # k/uL (0.0-0.9) H 06/30/18 06:00 Eos # (Auto) 0.4 # k/uL (0.0-0.6) 06/30/18 06:00 Baso # (Auto) 0.1 # k/uL (0.0-0.5) 06/30/18 06:00 Sodium 135 mmol/L (136-145) L 06/29/18 05:45 Potassium 5.2 mmol/L (3.5-5.1) H 06/29/18 05:45 Chloride 100 mmol/L (98-107) 06/29/18 05:45 Carbon Dioxide 22 mmol/L (22-30) 06/29/18 05:45 BUN 43 mg/dL (7-17) H 06/29/18 05:45 Creatinine 2.60 mg/dL (0.52-1.04) H 06/29/18 05:45 Estimated Creat Clear 13 06/29/18 05:45 Est GFR ( Amer) 22 (60-) L 06/29/18 05:45 Est GFR (Non-Af Amer) 18 (60-) L 06/29/18 05:45 Glucose 109 mg/dL (74-106) H 06/29/18 05:45 Calcium 8.4 mg/dL (8.4-10.2) 06/29/18 05:45 Total Bilirubin 0.4 mg/dL (0.2-1.3) 06/29/18 05:45 AST 40 U/L (15-46) 06/29/18 05:45 ALT 45 U/L (13-69) 06/29/18 05:45 Alkaline Phosphatase 294 U/L (38-126) H 06/29/18 05:45 Total Protein 6.4 g/dL (6.3-8.2) 06/29/18 05:45 Albumin 2.8 g/dL (3.5-5.0) L 06/29/18 05:45 Assessment/Plan - Assessment/Plan (1) CHF (congestive heart failure) Status: Acute Current Visit: No Qualifiers: Heart failure type: combined systolic and diastolic Heart failure chronicity: acute on chronic Qualified Code(s): I50.43 - Acute on chronic combined systolic (congestive) and diastolic (congestive) heart failure Assessment: Stable (2) Chronic atrial fibrillation Status: Chronic Current Visit: No Assessment: On eliquis, rate is well controlled (3) HTN (hypertension) Status: Chronic Current Visit: No Qualifiers: Hypertension type: essential hypertension Qualified Code(s): I10 - Essential (primary) hypertension Assessment: Well controlled (4) Pulmonary fibrosis Status: Chronic Current Visit: No Assessment: Chronic
[2018-07-01] MEDS: ONDANSETRON HCL 4 MG TAB.RAPDIS PO PRN (15:31)
[2018-07-01] MEDS: MONTELUKAST SODIUM 10 MG TABLET PO SCH (21:40)
[2018-07-01] MEDS: QUEtiapine FUMARATE 25 MG TABLET PO SCH (21:40)
[2018-07-01] MEDS: SIMVASTATIN 20 MG TABLET PO SCH (21:40)
[2018-07-01] MEDS: MELATONIN 3 MG TABLET PO SCH (21:40)
[2018-07-01] MEDS: ACETAMINOPHEN 325 MG TABLET PO PRN (21:44)
[2018-07-02] MEDS: PANTOPRAZOLE SODIUM 40 MG TABLET PO SCH (06:11)
[2018-07-02] MEDS: FUROSEMIDE 40 MG TABLET PO SCH ×2 (06:11→14:02)
[2018-07-02] MEDS: CALCIUM CARB 500 MG TAB.CHEW PO SCH ×2 (09:40→20:31)
[2018-07-02] MEDS: CHOLECALCIFEROL (VIT D3) 1,000 UNIT TABLET PO SCH (09:40)
[2018-07-02] MEDS: DILTIAZEM HCL 180 MG CAP.ER.24H PO SCH (09:40)
[2018-07-02] MEDS: APIXABAN 2.5 MG TABLET PO SCH ×2 (09:40→20:29)
[2018-07-02] MEDS: DORZOLAMINE HCL/TIMOLOL MALEAT OPTH DROP OP SCH ×2 (09:41→20:28)
[2018-07-02] MEDS: MELATONIN 3 MG TABLET PO SCH (20:29)
[2018-07-02] MEDS: SIMVASTATIN 20 MG TABLET PO SCH (20:29)
[2018-07-02] MEDS: QUEtiapine FUMARATE 25 MG TABLET PO SCH (20:29)
[2018-07-02] MEDS: MONTELUKAST SODIUM 10 MG TABLET PO SCH (20:31)
[2018-07-03] MEDS: ACETAMINOPHEN 325 MG TABLET PO PRN (04:14)
[2018-07-03] MEDS: FUROSEMIDE 40 MG TABLET PO SCH ×2 (06:04→13:22)
[2018-07-03] MEDS: PANTOPRAZOLE SODIUM 40 MG TABLET PO SCH (06:04)
[2018-07-03] MEDS: DORZOLAMINE HCL/TIMOLOL MALEAT OPTH DROP OP SCH ×2 (09:33→20:33)
[2018-07-03] MEDS: APIXABAN 2.5 MG TABLET PO SCH ×2 (09:33→20:33)
[2018-07-03] MEDS: CALCIUM CARB 500 MG TAB.CHEW PO SCH ×2 (09:34→20:32)
[2018-07-03] MEDS: DILTIAZEM HCL 180 MG CAP.ER.24H PO SCH (09:34)
[2018-07-03] MEDS: CHOLECALCIFEROL (VIT D3) 1,000 UNIT TABLET PO SCH (09:34)
[2018-07-03] MEDS: SIMVASTATIN 20 MG TABLET PO SCH (20:33)
[2018-07-03] MEDS: MONTELUKAST SODIUM 10 MG TABLET PO SCH (20:33)
[2018-07-03] MEDS: MELATONIN 3 MG TABLET PO SCH (20:33)
[2018-07-03] MEDS: QUEtiapine FUMARATE 25 MG TABLET PO SCH (20:33)
[2018-07-04] MEDS: FUROSEMIDE 40 MG TABLET PO SCH (06:03)
[2018-07-04] MEDS: PANTOPRAZOLE SODIUM 40 MG TABLET PO SCH (06:03)
[2018-07-04 08:36] VITALS: BP 113/62
[2018-07-04] MEDS: APIXABAN 2.5 MG TABLET PO SCH (08:43)
[2018-07-04] MEDS: CALCIUM CARB 500 MG TAB.CHEW PO SCH (08:43)
[2018-07-04] MEDS: CHOLECALCIFEROL (VIT D3) 1,000 UNIT TABLET PO SCH (08:43)
[2018-07-04] MEDS: DILTIAZEM HCL 180 MG CAP.ER.24H PO SCH (08:43)
[2018-07-04] MEDS: DORZOLAMINE HCL/TIMOLOL MALEAT OPTH DROP OP SCH (08:44)
--- NOTE | 2018-07-07 07:39 | Discharge Summary ---
DATE OF ADMISSION: June 28, 2018 DATE OF DISCHARGE: July 04, 2018 DIAGNOSES ON THIS HOSPITALIZATION: 1. Congestive heart failure. 2. Chronic atrial fibrillation. 3. Elevated troponin. 4. Hypertension. 5. Pulmonary fibrosis. SUMMARIZATION OF ADMISSION HISTORY AND PHYSICAL: This is an 88-year-old female who was initially admitted on June 25 for dyspnea and short of breath. She was noted to be in congestive heart failure. She was admitted and diuresed. She was feeling better but was not felt to be ready for discharge to home. As a result, she was transferred to a skilled stay on June 28. She continued to have very slow improvement and, again, was not felt safe to be discharged to home so she was discharged to [facility] today with the following orders. MEDICATIONS ON DISCHARGE: 1. Tylenol 650 mg p.o. every 6 hours p.r.n. pain or fever. 2. Eliquis 2.5 mg p.o. b.i.d. 3. Tums 500 mg 1 p.o. b.i.d. 4. Vitamin D3, 5000 units daily. 5. Diltazem CD 180 mg daily. 6. Cosopt eye drops 1 drop o.u. b.i.d. 7. Lasix 40 mg p.o. b.i.d. 8. Claritin 10 mg p.o. daily. 9. Melatonin 6 mg at bedtime. 10. Singulair 10 mg at bedtime. 11. Zofran 4 mg p.o. every 6 hours p.r.n. nausea. 12. Protonix 40 mg in the a.m. 13. Seroquel 12.5 mg at bedtime. 14. Simvastatin 20 mg at bedtime. CONDITION ON DISCHARGE: She is going to [facility] in improved condition. ARCADIOD
== END 2018-07-04 10:00 | DRG 948 ==
LOC: SOUTH 11:30
PROVIDERS: ADMIT Family Medicine; ATTEND Family Medicine
DX: R53.1 Weakness (principal); I50.9 Heart failure, unspecified; I48.91 Unspecified atrial fibrillation; I10 Essential (primary) hypertension; J84.10 Pulmonary fibrosis, unspecified
CPT/HCPCS: 71046; 80053; 85025; 97112; 97116; 97530; 97535; A9270

== ENCOUNTER 2018-07-23 15:55 | Emergency (ER) | payer MEDICARE, OTHER ==
[2018-07-23 16:30] LABS: BASOPHILS % 0.5 (0.0-1.5); EOSINOPHILS % 2.3 % (0.0-6.8); MEAN CORPUSCULAR HEMOGLOBIN 28.8 pg (28.0-34.0); MONOCYTES % 6.8 % (0.0-11.0); NEUTROPHILS # 8.5 # k/uL (1.4-7.7)
[2018-07-23 17:12] LABS: APPEARANCE,URINE CLEAR (CLEAR); COLOR,URINE YELLOW (YELLOW); OCCULT BLOOD,URINE NEGATIVE (NEGATIVE); UROBILINOGEN URINE 0.2 Eu (0.2-1.0)
[2018-07-23 17:13] LABS: AMORPHOUS SEDIMENT,UR MODERATE (NEGATIVE)
--- NOTE | 2018-07-23 17:42 | ED Physician Documentation ---
General Adult - HISTORIAN Historian: patient - HPI Stated Complaint: RLE pain/discoloration Chief Complaint: General Adult Further Comments: yes (88 year old female patient brought in from senior care for evaulation. Patient complains of SOB and right lower leg pain. denies known fall or injury.) - ROS CONST: weakness EYES/ENT: none CVS/RESP: shortness of breath. denies: chest pain, cough GI/: none MS/SKIN/LYMPH: leg swelling (right) NEURO/PSYCH: difficulty walking (related to right leg pain) - PAST HX Past History: other (Afib, CAD, CHF, HTN, HLD, PVD, Mitral Regurg, AVR ) Surgeries/Procedures: cardiac bypass, hysterectomy, other (AVR - bovine, Right CEA, bladder reconstruction) Allergies/Adverse Reactions: Allergies Allergy/AdvReac Type Severity Reaction Status Date / Time warfarin [Warfarin] Allergy Severe Rash Verified 07/23/18 16:04 atenolol Allergy Intermediate Throat Verified 07/23/18 16:04 Swelling Penicillins Allergy Intermediate Rash Verified 07/23/18 16:04 pravastatin Allergy Intermediate Itchy Skin Verified 07/23/18 16:04 levofloxacin Allergy Mild Verified 07/23/18 16:04 codeine Allergy Unknown Verified 07/23/18 16:04 niacin Allergy Unknown Verified 07/23/18 16:04 pravastatin sodium Allergy Unknown Verified 07/23/18 16:04 [From Pravachol] Sulfa (Sulfonamide Allergy Unknown Verified 07/23/18 16:04 Antibiotics) erythromycin base Allergy Verified 07/23/18 16:04 fluticasone furoate Allergy Verified 07/23/18 16:04 [From Breo Ellipta] Neuromuscular Blockers, Allergy Verified 07/23/18 16:04 Steroidal vilanterol trifenatate Allergy Verified 07/23/18 16:04 [From Breo Ellipta] atorvastatin calcium AdvReac Unknown unknown Verified 07/23/18 16:04 tramadol AdvReac Unknown unknown Verified 07/23/18 16:04 Coumarin Analogues AdvReac unknown Verified 07/23/18 16:04 iodine AdvReac Tongue Verified 07/23/18 16:04 Swelling anabolic steriods Allergy Unknown Uncoded 07/23/18 16:04 Home Medications: Ambulatory Orders Medication Instructions Recorded Montelukast Sodium [Singulair] 10 mg PO HS 11/01/16 Diltiazem HCl [Diltiazem ER] 240 mg PO DAILY 06/25/18 Acetaminophen [Tylenol Extra 500 mg PO Q4H PRN tablet 06/28/18 Strength] Dorzolamide HCl/Timolol Maleat 1 drop OP BID bottle 06/28/18 [Cosopt Eye Drops] Furosemide [Lasix] 20 mg IJ DAILY #30 vial 06/28/18 - SOCIAL HX Smoking History: non-smoker - FAMILY HX Family History: No - VITAL SIGNS Vital Signs: Vital Signs Temp Pulse Resp BP Pulse Ox 98.2 F 64 20 112/97 98 07/23/18 16:07 07/23/18 16:07 07/23/18 16:07 07/23/18 16:07 07/23/18 16:07 - REVIEWED ASSESSMENTS Nursing Assessment Reviewed: Yes Vitals Reviewed: Yes Progress - Progress Progress: Lab and chest xray results reviewed with patient and family. Recommend admission or transfer. Family would like admission. Family requesting patient be given something for anxiety. Patient resting quietly at this time, will not give sedation with elevated BUN/CR. Case discussed with DIETER Lopez; does not feel comfortable with admission due to elevated BNP, Cr and Trop. Family updated; patient has been followed by Dr Barry at [facility]. 1821 Call to [facility] [address] Giron at [facility]. Patient resting quietly, Sat 97% on RA. - EKG/XRAY/CT EKG: rhythm (A fib, rate 69) ED Results Lab/Radiology - Lab Results Lab Results: Lab Results 07/23/18 07/23/18 07/23/18 16:18 16:15 16:15 WBC RBC Hgb Hct MCV MCH MCHC RDW Plt Count Neut % (Auto) Lymph % (Auto) [place] % (Auto) Eos % (Auto) Baso % (Auto) Neut # (Auto) Lymph # (Auto) [place] # (Auto) Eos # (Auto) Baso # (Auto) Sodium 141 mmol/L mmol/L (136-145) Potassium 3.9 mmol/L mmol/L (3.5-5.1) Chloride 103 mmol/L mmol/L (98-107) Carbon Dioxide 24 mmol/L mmol/L (22-30) BUN 39 mg/dL H mg/dL (7-17) Creatinine 2.40 mg/dL H mg/dL (0.52-1.04) Estimated Creat Clear 14 Est GFR ( Amer) 24 L (60 - ) Est GFR (Non-Af Amer) 20 L (60 - ) Glucose 98 mg/dL mg/dL (74-106) Calcium 8.9 mg/dL mg/dL (8.4-10.2) Total Bilirubin 1.4 mg/dL H mg/dL (0.2-1.3) AST 45 U/L U/L (15-46) ALT 29 U/L U/L (13-69) Alkaline Phosphatase 263 U/L H U/L (38-126) Troponin I 0.09 ng/mL H ng/mL (0.03-0.06) NT-Pro-B Natriuret Pep 6951.8 pg/mL H pg/mL (15.0-450.0) Total Protein 7.3 g/dL g/dL (6.3-8.2) Albumin 3.2 g/dL L g/dL (3.5-5.0) Urine Color Yellow (YELLOW) Urine Appearance Clear (CLEAR) Urine pH 5.0 (5.0 - 8.0) Ur Specific [place] 1.020 (1.010-1.030) Urine Protein 2+ mg/dL H mg/dL (NEGATIVE) Urine Ketones Negative mg/dL mg/dL (NEGATIVE) Urine Occult Blood Negative (NEGATIVE) Urine Nitrite Negative (NEGATIVE) Urine Bilirubin Negative (NEGATIVE) Urine Urobilinogen 0.2 Eu Eu (0.2-1.0) Ur Leukocyte Esterase Negative (NEGATIVE) Urine WBC 2-5 (0-5 HPF) Ur Transition Epith Cell Few H (NEGATIVE) Amorphous Sediment Moderate H (NEGATIVE) Urine Bacteria Moderate H (NEGATIVE) Urine Glucose Negative mg/dL mg/dL (NEGATIVE) 07/23/18 16:15 WBC 11.20 K/ul K/ul (4.00-12.00) RBC 4.42 M/ul M/ul (3.90-5.20) Hgb 12.7 g/dL g/dL (12.0-16.0) Hct 39.4 % % (34.5-46.5) MCV 89.0 fl fl (80.0-100.0) MCH 28.8 pg pg (28.0-34.0) MCHC 32.3 g/dL g/dL (30.0-36.0) RDW 13.7 % % (11.3-14.3) Plt Count 247 K/mm3 K/mm3 (130-400) Neut % (Auto) 76.0 % % (39.0-79.0) Lymph % (Auto) 14.4 % L % (16.0-50.0) [place] % (Auto) 6.8 % % (0.0-11.0) Eos % (Auto) 2.3 % % (0.0-6.8) Baso % (Auto) 0.5 (0.0-1.5) Neut # (Auto) 8.5 # k/uL H # k/uL (1.4-7.7) Lymph # (Auto) 1.6 # k/uL # k/uL (0.6-4.0) [place] # (Auto) 0.8 # k/uL # k/uL (0.0-0.9) Eos # (Auto) 0.3 # k/uL # k/uL (0.0-0.6) Baso # (Auto) 0.1 # k/uL # k/uL (0.0-0.5) Sodium Potassium Chloride Carbon Dioxide BUN Creatinine Estimated Creat Clear Est GFR ( Amer) Est GFR (Non-Af Amer) Glucose Calcium Total Bilirubin AST ALT Alkaline Phosphatase Troponin I NT-Pro-B Natriuret Pep Total Protein Albumin Urine Color Urine Appearance Urine pH Ur Specific [place] Urine Protein Urine Ketones Urine Occult Blood Urine Nitrite Urine Bilirubin Urine Urobilinogen Ur Leukocyte Esterase Urine WBC Ur Transition Epith Cell Amorphous Sediment Urine Bacteria Urine Glucose - Orders Orders: ED Orders Category Date Time Status In & Out Catheter [Urinary catheterization] 1T Care 07/23/18 17:[address] IV Lock 1T Care 07/23/18 16:18 Active CHEST 1VIEW [RAD] Stat Exams 07/23/18 16:29 Taken TIBIA & FIBULA 2 VIEW [RAD] Stat Exams 07/23/18 Taken BNP [NT-proBNP] Stat Lab 07/23/18 16:15 Completed CBC/PLATELET/DIFF Stat Lab 07/23/18 16:15 Completed CMP Stat Lab 07/23/18 16:15 Completed TROPONIN I (cTnI) Stat Lab 07/23/18 16:15 Completed UA W/MICRO IF INDICATED Stat Lab 07/23/18 16:18 Completed URINE CULTURE Stat Lab 07/23/18 Received General Adult Physical Exam - PHYSICAL EXAM GENERAL APPEARANCE: mild distress EENT: eye inspection normal, no signs of dehydration, LIAT RESPIRATORY: no resp distress, chest non-tender, breath sounds normal CVS: equal pulses, no murmur, no gallop, PMI nml, no JVD, no friction rub, irregularly irregular rhy, murmur ABDOMEN: soft, no distension, non-tender SKIN: warm/dry, normal color, other (right posterior lower leg with 4x4 area of ecchymosis; tenderness to touch. ) EXTREMITIES: edema (1+) NEURO: oriented X3, motor nml, sensation nml, other (anxious) Discharge Clincal Impression: Elevated troponin level, Chronic atrial fibrillation, Pulmonary fibrosis CHF (congestive heart failure) Qualifiers: Heart failure type: combined systolic and diastolic Heart failure chronicity: acute on chronic Qualified Code(s): I50.43 - Acute on chronic combined systolic (congestive) and diastolic (congestive) heart failure Referrals: Nikolay Sommers MD [Primary Care Provider] - 2 Days Condition: Stable Disposition: [id number] HOSP Decision to Admit: NO Decision Time: 19:00
--- NOTE | 2018-07-23 18:04 | Diagnostic Imaging Report ---
LUIS BLACK (LEAKAGE TESTER) - ER [facility] [address] [facility].[address] [id number] Report Submission Date: Jul 23, 2018 5:00:01 PM FINANCIAL SYSTEMS ADMINISTRATOR Patient Study Name: LUZ MARIA BALES Date: Jul 23, 2018 4:37:08 PM FINANCIAL SYSTEMS ADMINISTRATOR Modality Type: DX Gender: F Description: CHEST : 28 Institution: [facility] Physician: LUIS BLACK (LEAKAGE TESTER) - ER Chest, AP portable HISTORY Hypoxia. FINDINGS Sternal wires indicate prior cardiac surgery. Left subclavian transvenous pacemaker is present. Diffuse bilateral lung infiltrates or edema is noted. The heart is enlarged. There is no pneumothorax or large effusion. Since 06/30/2018, little change has occurred. IMPRESSION Stable lung infiltrates or edema. Electronically signed on Jul 23, 2018 5:00:01 PM FINANCIAL SYSTEMS ADMINISTRATOR by: Cornelio JOSEPH
--- NOTE | 2018-07-23 18:05 | Diagnostic Imaging Report ---
LUIS BLACK (DATA WAREHOUSING SPECIALIST) - ER [facility] [address] [facility].[address] [id number] Report Submission Date: Jul 23, 2018 5:05:07 PM SOLAR SALES ADVISOR Patient Study Name: LUZ MARIA BALES Date: Jul 23, 2018 4:24:04 PM SOLAR SALES ADVISOR Modality Type: DX Gender: F Description: LOWER EXTREMITY : 28 Institution: [facility] Physician: LUIS BLACK (NICK) - ER Examination: Plain film right tibia/fibula History: PAIN; UNKNOWN INJURY (Hx Comparison exams: None available Findings: 3 views of the right tibia fibula demonstrates osteopenia. Articular degenerative spurring. No evidence for fracture line. No soft tissue abnormality. Impression: Osteopenia and degenerative changes. No acute appearing osseous abnormality. Electronically signed on Jul 23, 2018 5:05:07 PM SOLAR SALES ADVISOR by: Lei JOSEPH
[2018-07-23 19:26] VITALS: BP 116/65
== END 2018-07-23 19:23 | disposition short-term general hospital (02) ==
LOC: ED 15:55
DX: I50.43 Acute on chronic combined systolic (congestive) and diastolic (congestive) heart failure (principal); I48.2 Chronic atrial fibrillation; J84.10 Pulmonary fibrosis, unspecified; R79.89 Other specified abnormal findings of blood chemistry
CPT/HCPCS: 51701; 71045; 73590; 80053; 81002; 83880; 84484; 85025; 87086; 87186; 99285; S1016